=== PATIENT | female | born 1975 | race Caucasian/White ===

== ENCOUNTER 2018-02-12 05:12 | Emergency (ER) | payer OTHER, MEDICAID ==
[~2018-02-12] VITALS: Ht 172.7 cm; Wt 77.3 kg
[~2018-02-12 05:12] MED LIST: ASEN5TAB SL; BUSP5TAB3 PO; TRAZ150T75 PO
[2018-02-12 05:35] VITALS: BP 133/72; PULSE 99; RESP 20; TEMP 98.3; O2SAT 97
--- NOTE | 2018-02-12 07:20 | PD ---
HPI Chief Complaint: Suicidal ideation Time Seen by Provider: 07:03 Travel History International Travel<30 days: No Contact w/Intl Traveler<30days: No History of Present Illness HPI 42yo F with PMH of alcohol abuse and ?bipolar disorder presents to the ED under Box Act for suicidal ideation. As per Box Act, pt attempted to hang herself with a sweater. Pt has some old ecchymoses on her face but no stridor or respiratory distress. Pt is speaking in complete sentences but obviously had drank alcohol. Pt said she only drank 3 drinks. PFSH Past Medical History Bipolar Disorder: Yes Depression: Yes Cardiovascular Problems: Yes (TOLD A CHILD SHE HAS A "HEART PALPATATION") Diabetes: No Psychiatric: Yes : 3 Para: 2 : 1 Social History Alcohol Use: Yes (OCCASIONS) Tobacco Use: Yes (1PPD) Substance Use: No Allergies-Medications (Allergen,Severity, Reaction): Coded Allergies: Sulfa (Sulfonamide Antibiotics) (Unverified Allergy, Severe, 02/12/18) Reported Meds & Prescriptions Reported Meds & Active Scripts Active Reported Trazodone Hcl (Trazodone HCl) 150 Mg Tab 150 Mg PO HS-RT UNKNOWN DOSE Saphris (Asenapine) 5 Mg Sub 15 Mg SL DAILY UNKNOWN DOSE Buspar (Buspirone HCl) 5 Mg Tab 90 Mg PO BID UNKNOWN DOSE Review of Systems Except as stated in HPI: all other systems reviewed are Neg Physical Exam Narrative GENERAL: 42yo F intoxicated. SKIN: Focused skin assessment warm/dry. HEAD: Old ecchymoses on face, no hematoma, no bleeding. EYES: Pupils equal and round. No scleral icterus. No injection or drainage. ENT: No nasal bleeding or discharge. Mucous membranes pink and moist. NECK: No midline ttp cervical spine. CARDIOVASCULAR: Regular rate and rhythm. No murmur appreciated. RESPIRATORY: No accessory muscle use. Clear to auscultation. Breath sounds equal bilaterally. GASTROINTESTINAL: Abdomen soft, non-tender, nondistended. MUSCULOSKELETAL: No obvious deformities. No clubbing. No cyanosis. No edema. NEUROLOGICAL: Awake and alert. No obvious cranial nerve deficits. Motor grossly within normal limits in all extremities. Sensation intact. Normal speech. PSYCHIATRIC: Mildly intoxicated. Manipulative. Data Data Last Documented VS Vital Signs Date Time Temp Pulse Resp B/P (MAP) Pulse Ox O2 Delivery O2 Flow Rate FiO2 02/12/18 05:35 98.3 99 20 133/72 (92) 97 Orders Orders Complete Blood Count With Diff (02/12/18 07:04) Comprehensive Metabolic Panel (02/12/18 07:04) Urinalysis - C+S If Indicated (02/12/18 07:04) Ed Urine Pregnancytest Poc (02/12/18 07:04) Psych Screen (02/12/18 07:04) Diet Regular Basic (02/12/18 Breakfast) Drug Screen, Random Urine (02/12/18 07:04) Alcohol (Ethanol) (02/12/18 07:04) Thyroid Stimulating Hormone (02/12/18 07:03) Salicylates (Aspirin) (02/12/18 07:03) Tylenol (Acetaminophen) (02/12/18 07:03) Ct Brain W/O Iv Contrast(Rout) (02/12/18 ) Ct Facial Bones W/O Iv Cont (02/12/18 ) Ct Cerv Spine W/O Contrast (02/12/18 ) Mri C Spine W/O Contrast (02/12/18 ) Lorazepam (Ativan) (02/12/18 10:30) Ondansetron Odt (Zofran Odt) (02/12/18 10:45) Labs Laboratory Tests Test 02/12/18 05:45 02/12/18 06:55 White Blood Count 10.3 TH/MM3 Red Blood Count 4.15 MIL/MM3 Hemoglobin 14.4 GM/DL Hematocrit 41.5 % Mean Corpuscular Volume 100.0 FL Mean Corpuscular Hemoglobin 34.7 PG Mean Corpuscular Hemoglobin Concent 34.8 % Red Cell Distribution Width 14.0 % Platelet Count 228 TH/MM3 Mean Platelet Volume 8.2 FL Neutrophils (%) (Auto) 53.5 % Lymphocytes (%) (Auto) 39.5 % Monocytes (%) (Auto) 4.7 % Eosinophils (%) (Auto) 1.8 % Basophils (%) (Auto) 0.5 % Neutrophils # (Auto) 5.5 TH/MM3 Lymphocytes # (Auto) 4.1 TH/MM3 Monocytes # (Auto) 0.5 TH/MM3 Eosinophils # (Auto) 0.2 TH/MM3 Basophils # (Auto) 0.0 TH/MM3 CBC Comment DIFF FINAL Differential Comment Blood Urea Nitrogen 4 MG/DL Creatinine 0.87 MG/DL Random Glucose 77 MG/DL Total Protein 7.9 GM/DL Albumin 4.5 GM/DL Calcium Level 8.4 MG/DL Alkaline Phosphatase 74 U/L Aspartate Amino Transf (AST/SGOT) 29 U/L Alanine Aminotransferase (ALT/SGPT) 14 U/L Total Bilirubin 0.4 MG/DL Sodium Level 146 MEQ/L Potassium Level 3.4 MEQ/L Chloride Level 108 MEQ/L Carbon Dioxide Level 18.8 MEQ/L Anion Gap 19 MEQ/L Estimat Glomerular Filtration Rate 71 ML/MIN Thyroid Stimulating Hormone 3rd Gen 0.882 uIU/ML Salicylates Level 4.9 MG/DL Acetaminophen Level LESS THAN 2.0 MCG/ML Ethyl Alcohol Level 259 MG/DL Urine Color LIGHT-YELLOW Urine Turbidity CLEAR Urine pH 6.5 Urine Specific [place] 1.008 Urine Protein NEG mg/dL Urine Glucose (UA) NEG mg/dL Urine Ketones 10 mg/dL Urine Occult Blood NEG Urine Nitrite NEG Urine Bilirubin NEG Urine Urobilinogen LESS THAN 2.0 MG/DL Urine Leukocyte Esterase NEG Urine RBC 1 /hpf Urine WBC LESS THAN 1 /hpf Urine Squamous Epithelial Cells 1 /hpf Urine Mucus FEW /lpf Microscopic Urinalysis Comment CULT NOT INDICATED Urine Opiates Screen NEG Urine Barbiturates Screen NEG Urine Amphetamines Screen NEG Urine Benzodiazepines Screen POS Urine Cocaine Screen NEG Urine Cannabinoids Screen POS [place] Medical Decision Making Medical Screen Exam Complete: Yes Emergency Medical Condition: Yes Differential Diagnosis Alcohol intoxication vs. medical clearance for psych evaluation vs. suicidal ideation Narrative Course 42yo F was brought in as box act for suicidal ideation. Labs reviewed, no leukocytosis. H/H normal. TSH normal. CO2 is low at 18.8. Blood alcohol elevated at 259. Utox positive for benzodiazepine and cannabinoids. CT cspine showed no fracture or dislocation. However, there is slight retrolisthesis seen on C6/7 may be secondary to respiratory artifact versus true retrolisthesis. I discussed with radiologist Dr. Mai and she thinks it is likely from respiratory artifact from movement but given history of trauma, would recommend MRI cervical spine w/o contrast. CT brain negative. CT maxillofacial negative. 1mg PO ativan given prior to MRI because pt is claustrophobic. MRI cspine showed normal exam. Suggested retrolisthesis on CT likely misregistration secondary to pt's respiratory motion. No abnormal edema identified within adjacent ligamentous tissues. Pt is medically clear for psych evaluation. Diagnosis Primary Impression: Suicidal ideation Floresita Espinal DO Feb 12, 2018 07:20
[2018-02-12 07:36] LABS: AUTOMATED NEUTROPHIL # 5.5 TH/MM3 (1.8-7.7); BASOPHIL % 0.5 % (0.0-2.0); EOSINOPHIL # 0.2 TH/MM3 (0-0.4); EOSINOPHIL % 1.8 % (0.0-4.0); HEMATOCRIT 41.5 % (35.0-46.0); HEMOGLOBIN 14.4 GM/DL (11.6-15.3); LYMPH % 39.5 % (9.0-44.0); LYMPHOCYTE # 4.1 TH/MM3 (1.0-4.8); MEAN CORPUSCULAR HEMOGLOBIN 34.7 PG (27.0-34.0); MEAN CORPUSCULAR HGB CONC 34.8 % (32.0-36.0); MEAN PLATELET VOLUME 8.2 FL (7.0-11.0); MONO % 4.7 % (0.0-8.0); MONOCYTE # 0.5 TH/MM3 (0-0.9); NEUT % 53.5 % (16.0-70.0); PLATELET COUNT 228 TH/MM3 (150-450); RED BLOOD COUNT 4.15 MIL/MM3 (4.00-5.30); WHITE BLOOD COUNT 10.3 TH/MM3 (4.0-11.0)
[2018-02-12 07:46] LABS: BILIRUBIN, URINE NEG (NEG); BLOOD, URINE NEG (NEG); GLUCOSE,URINE NEG (NEG); KETONE, URINE 10 mg/dL (NEG); MUCUS URINE FEW /lpf (OCC); NITRITE,URINE NEG (NEG); PH, URINE 6.5 (5.0-8.5); SQUAMOUS EPITHELIAL CELL URINE 1 /hpf (0-5); URINE COLOR LIGHT-YELLOW (YELLW/STRAW); URINE LEUKOCYTE ESTERASE NEG (NEG)
[2018-02-12 07:57] LABS: ALKALINE PHOSPHATASE 74 U/L (45-117); TOTAL BILIRUBIN ADULT 0.4 MG/DL (0.2-1.0); TOTAL PROTEIN 7.9 GM/DL (6.4-8.2)
[2018-02-12 07:59] LABS: ALBUMIN 4.5 GM/DL (3.4-5.0); ALT (GPT) 14 U/L (10-53); AST (GOT) 29 U/L (15-37); BICARBONATE 18.8 MEQ/L (21.0-32.0); BLOOD UREA NITROGEN 4 MG/DL (7-18); CALCIUM 8.4 MG/DL (8.5-10.1); CHLORIDE 108 MEQ/L (98-107); CREATININE 0.87 MG/DL (0.50-1.00); GLOMERULAR FILTRATION RATE 71 ML/MIN (>89); GLUCOSE,RANDOM 77 MG/DL (74-106); SODIUM (NA) 146 MEQ/L (136-145)
[2018-02-12 08:06] LABS: ACETAMINOPHEN LESS THAN 2.0 MCG/ML (10.0-30.0)
--- NOTE | 2018-02-12 09:00 | RADRPT ---
EXAM DATE: 02/12/2018 8:51 AM EDT AGE/SEX: 42 years / Female INDICATIONS: Attempted hanging. CLINICAL DATA: This is the patient's initial encounter. Patient reports that signs and symptoms have been present for 1 day and indicates a pain score of 5/10. MEDICAL/SURGICAL HISTORY: . Psychiatric disorders. None. RADIATION DOSE: 22.01 CTDI (mGy) ; Patient motion COMPARISON: No prior [place] exams available for comparison. TECHNIQUE: Contiguous axial images were obtained using helical multirow detector technique. The vol umetric data was post-processed with multiplanar reconstruction in oblique axial, sagittal, and coron al planes. Using automated exposure control and adjustment of the mA and/or kV according to patient s ize, radiation dose was kept as low as reasonably achievable to obtain optimal diagnostic quality caleb ges. FINDINGS: Vertebrae: Normal vertebral body height. Alignment: There is overall straightening of the cervical spine with minimal retrolisthesis of C6 on C7. There is respiratory artifact identified from the level of C6-T1. Respiratory artifact from C6 through T1 somewhat limits the exam, however, no fractures are visualize d. The adjacent soft tissues are grossly unremarkable. CONCLUSION: 1. No fracture or dislocation visualized, however, there is respiratory artifact seen from C6 throug h T1. The slight retrolisthesis seen on C6/C7 may be secondary to misregistration secondary to respir atory artifact versus true retrolisthesis. Consider further evaluation with MRI when clinically able. Electronically signed by: Tata Mai MD 02/12/2018 8:59 AM EDT
--- NOTE | 2018-02-12 09:33 | RADRPT ---
EXAM DATE: 02/12/2018 8:37 AM EDT AGE/SEX: 42 years / Female INDICATIONS: Attempted hanging. CLINICAL DATA: This is the patient's initial encounter. Patient reports that signs and symptoms have been present for 1 day and indicates a pain score of 4/10. MEDICAL/SURGICAL HISTORY: . Psychiatric disorders. None. RADIATION DOSE: 32.08 CTDI (mGy) COMPARISON: No prior [place] exams available for comparison. TECHNIQUE: CT of the head without contrast. Using automated exposure control and adjustment of the mA and/or kV according to patient size, radiation dose was kept as low as reasonably achievable to ob tain optimal diagnostic quality images. FINDINGS: Motion artifact noted on the exam. Cerebrum: The ventricles are normal for age. No evidence of midline shift, mass lesion, hemorrhage or acute infarction. No extraaxial fluid collections are seen. Posterior Fossa: The cerebellum and brainstem are intact. The 4th ventricle is midline. The cerebe llopontine angle is unremarkable. Extracranial: The visualized portion of the orbits is intact. Mucosal thickening identified througho ut the ethmoid air cells. Skull: The calvaria is intact. No evidence of skull fracture. CONCLUSION: 1. Negative exam. Electronically signed by: Tata Mai MD 02/12/2018 9:32 AM EDT
--- NOTE | 2018-02-12 09:35 | RADRPT ---
EXAM DATE: 02/12/2018 9:06 AM EDT AGE/SEX: 42 years / Female INDICATIONS: Attempted hanging. CLINICAL DATA: This is the patient's initial encounter. Patient reports that signs and symptoms have been present for 1 day and indicates a pain score of 1/10. MEDICAL/SURGICAL HISTORY: . Psychiatric disorders. None. RADIATION DOSE: 63.12 CTDI (mGy) ; Patient motion COMPARISON: No prior [place] exams available for comparison. TECHNIQUE: Contiguous images in the axial and coronal planes were obtained using helical multirow de tector technique. Using automated exposure control and adjustment of the mA and/or kV according to p atient size, radiation dose was kept as low as reasonably achievable to obtain optimal diagnostic jake lity images. FINDINGS: Motion artifact identified throughout the exam. Orbits: The orbital and infraorbital osseous structures are intact. The retroconal structures have a normal configuration. No radiopaque foreign bodies are seen. Nasal Bone: The nasal bone and maxillary spine are intact. Zygomatic Arches: Symmetric without evidence of fracture. Sinuses: Diffuse mucosal thickening identified throughout the ethmoid air cells and frontal sinuses and to a lesser extent the sphenoid sinuses. Rounded area of mucosal thickening identified within the maxillary sinuses consistent with mucous retention cyst. Nasal Cavity: The nasal septum is intact and midline. The lacrimal ducts are intact. Soft Tissues: No radiopaque foreign bodies seen. No soft-tissue swelling is seen. Intracranial: No intracranial air seen. Cribriform Plate: Grossly intact. CONCLUSION: 1. Diffuse sinus disease. Otherwise negative exam. Electronically signed by: Tata Mai MD 02/12/2018 9:34 AM EDT
[2018-02-12] MEDS ORDERED: LORazepam 1 MG TAB PO ONE (10:30)
[2018-02-12] MEDS ORDERED: ONDANSETRON ODT 4 MG TAB PO ONE (10:45)
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
[2018-02-12 12:35] VITALS: BP 131/69; PULSE 78; RESP 14; O2SAT 98
[2018-02-12] MEDS ORDERED: IBUPROFEN 800 MG TAB PO ONE (15:00)
[2018-02-12 15:26] VITALS: BP 157/104; PULSE 70; RESP 16; TEMP 98.6; O2SAT 100
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
--- NOTE | 2018-02-12 17:14 | PD ---
Physical Exam Time Seen by Provider: 17:11 Narrative YESICA Nath has evaluated the patient, lifted the Box act and cleared the patient for discharge. Data Data Last Documented VS Vital Signs Date Time Temp Pulse Resp B/P (MAP) Pulse Ox O2 Delivery O2 Flow Rate FiO2 02/12/18 16:55 02/12/18 15:26 98.6 70 16 100 Room Air Orders Orders Complete Blood Count With Diff (02/12/18 07:04) Comprehensive Metabolic Panel (02/12/18 07:04) Urinalysis - C+S If Indicated (02/12/18 07:04) Ed Urine Pregnancytest Poc (02/12/18 07:04) Psych Screen (02/12/18 07:04) Diet Regular Basic (02/12/18 Breakfast) Drug Screen, Random Urine (02/12/18 07:04) Alcohol (Ethanol) (02/12/18 07:04) Thyroid Stimulating Hormone (02/12/18 07:03) Salicylates (Aspirin) (02/12/18 07:03) Tylenol (Acetaminophen) (02/12/18 07:03) Ct Brain W/O Iv Contrast(Rout) (02/12/18 ) Ct Facial Bones W/O Iv Cont (02/12/18 ) Ct Cerv Spine W/O Contrast (02/12/18 ) Mri C Spine W/O Contrast (02/12/18 ) Lorazepam (Ativan) (02/12/18 10:30) Ondansetron Odt (Zofran Odt) (02/12/18 10:45) Diet Regular Basic (02/12/18 Lunch) Diet Regular Basic (02/12/18 Dinner) Ibuprofen (Motrin) (02/12/18 15:00) Labs Laboratory Tests Test 02/12/18 05:45 02/12/18 06:55 White Blood Count 10.3 TH/MM3 Red Blood Count 4.15 MIL/MM3 Hemoglobin 14.4 GM/DL Hematocrit 41.5 % Mean Corpuscular Volume 100.0 FL Mean Corpuscular Hemoglobin 34.7 PG Mean Corpuscular Hemoglobin Concent 34.8 % Red Cell Distribution Width 14.0 % Platelet Count 228 TH/MM3 Mean Platelet Volume 8.2 FL Neutrophils (%) (Auto) 53.5 % Lymphocytes (%) (Auto) 39.5 % Monocytes (%) (Auto) 4.7 % Eosinophils (%) (Auto) 1.8 % Basophils (%) (Auto) 0.5 % Neutrophils # (Auto) 5.5 TH/MM3 Lymphocytes # (Auto) 4.1 TH/MM3 Monocytes # (Auto) 0.5 TH/MM3 Eosinophils # (Auto) 0.2 TH/MM3 Basophils # (Auto) 0.0 TH/MM3 CBC Comment DIFF FINAL Differential Comment Blood Urea Nitrogen 4 MG/DL Creatinine 0.87 MG/DL Random Glucose 77 MG/DL Total Protein 7.9 GM/DL Albumin 4.5 GM/DL Calcium Level 8.4 MG/DL Alkaline Phosphatase 74 U/L Aspartate Amino Transf (AST/SGOT) 29 U/L Alanine Aminotransferase (ALT/SGPT) 14 U/L Total Bilirubin 0.4 MG/DL Sodium Level 146 MEQ/L Potassium Level 3.4 MEQ/L Chloride Level 108 MEQ/L Carbon Dioxide Level 18.8 MEQ/L Anion Gap 19 MEQ/L Estimat Glomerular Filtration Rate 71 ML/MIN Thyroid Stimulating Hormone 3rd Gen 0.882 uIU/ML Salicylates Level 4.9 MG/DL Acetaminophen Level LESS THAN 2.0 MCG/ML Ethyl Alcohol Level 259 MG/DL Urine Color LIGHT-YELLOW Urine Turbidity CLEAR Urine pH 6.5 Urine Specific [place] 1.008 Urine Protein NEG mg/dL Urine Glucose (UA) NEG mg/dL Urine Ketones 10 mg/dL Urine Occult Blood NEG Urine Nitrite NEG Urine Bilirubin NEG Urine Urobilinogen LESS THAN 2.0 MG/DL Urine Leukocyte Esterase NEG Urine RBC 1 /hpf Urine WBC LESS THAN 1 /hpf Urine Squamous Epithelial Cells 1 /hpf Urine Mucus FEW /lpf Microscopic Urinalysis Comment CULT NOT INDICATED Urine Opiates Screen NEG Urine Barbiturates Screen NEG Urine Amphetamines Screen NEG Urine Benzodiazepines Screen POS Urine Cocaine Screen NEG Urine Cannabinoids Screen POS MDM Supervised Visit with ANN MARIE: No Narrative Course YESICA Nath has evaluated the patient, lifted the Box act and cleared the patient for discharge. Patient contracts safety. Denies suicidal or homicidal ideations. Patient will be provided community resource packet to [facility]/ [facility] for follow-up. Has friends and family for support. Patient was medically cleared by alternate provider prior to psych screening. Patient has been evaluated by psychiatry and and is now cleared for discharge. Diagnosis Primary Impression: Alcohol-induced mood disorder Additional Impressions: Alcohol abuse Depression Referrals: [facility] (Out patient) as needed Medication Management [facility] Primary Care Physician Psychiatrist Minh SCHMITT [facility] Patient Instructions: General Instructions, Depression (ED), Abuse of Alcohol ( ED), At-Risk Alcohol Use (ED) Departure Forms: Tests/Procedures Additional Instruction: Contract safety to your self and others Follow-up with psychiatry Follow-up with primary care provider Follow-up with Rickey Britt Return to the emergency department immediately with worsening of symptoms Med/Other Pt SpecificInfo: No Change to Meds, No Meds Exist/No RX given Disposition: 01 DISCHARGE HOME Condition: Stable Melinda Fontana Feb 12, 2018 17:14
== END 2018-02-12 17:15 | disposition home or self-care (01) ==
LOC: NEPC 05:12 → NEPJ 17:15
DX: F10.24 Alcohol dependence with alcohol-induced mood disorder (principal); F17.200 Nicotine dependence, unspecified, uncomplicated; F31.9 Bipolar disorder, unspecified; Y90.8 Blood alcohol level of 240 mg/100 ml or more; Z79.899 Other long term (current) drug therapy
CPT/HCPCS: 70450; 70486; 72125; 72141; 80053; 80307; 81001; 84443; 84703; 85025

== ENCOUNTER 2018-07-03 16:43 | Inpatient (IN) ==
[2018-07-03] MEDS ORDERED: Haloperidol Inj 5 MG/ML Ampul IM ONE (16:52)
--- NOTE | 2018-07-03 17:57 | ED ---
HPI General Chief Complaint: Altered Mental Status Stated Complaint: altered mental status Time Seen by Provider: 07/03/18 16:52 Source: family () Mode of arrival: EMS Limitations: altered mental status History of Present Illness HPI narrative: Unable to obtain information from the patient secondary to altered mental status and current clinical condition. Patient arrived via EMS. Patients arrived at the bedside and states his son had come to him while he was taking up and told him his , the patient, was acting weird in the bathtub. When he observed her in the bathtub she was laying and rolling from side to side and banging her head uncontrollably. She was awake and continued to say "no" and would not say anything else. He did hear her say "Sarah and "I need to go to the bathroom" at one point. But otherwise she continued to also decide on my own saying "no." The patient is observed during the same behavior here in the ER upon arrival. According to EMS the patient has been observed in this behavior for a few hours. observed he reports that she drinks alcohol daily and she does have alcohol smell on her. He does not know how much alcohol she has consumed today. Reports that she also smokes marijuana. Denies any other illicit drug use that he knows of. On Wednesday she was started on lamotrigine by Dr. Montaño for bipolar disorder. Patient is allergic to sulfa. Symptoms are moderate to severe in severity. No known aggravating or relieving factors. Duration acute. Dr. Montaño is primary care provider. Has been denies any significant past medical history. Does report history of bipolar disorder, alcohol abuse, and cyst of ovary. Related Data Home Medications Medication Instructions Recorded Confirmed lamotrigine 50 mg PO BID 07/03/18 07/03/18 Allergies Allergy/AdvReac Type Severity Reaction Status Date / Time Sulfa (Sulfonamide Allergy Severe Rash Verified 07/03/18 18:27 Antibiotics) Review of Systems ROS Unobtainable ROS Unobtainable: unobtainable due to mental status PMFSH History History Provided By: Family Member and Medical Record Medical History Medical History Bipolar disorder (Acute) Cyst of ovary (Acute) Rib pain on left side (Acute) Alcohol abuse (Acute) Depression (Acute) (Acute) Social History Social History Substance History: Active Abuse Second Hand Smoke Exposure: No Smoking Status: Current every day smoker Tobacco Type: Cigarettes How Often Do You Have a Drink Containing Alcohol: 4 or more times a week Recent Travel in [facility] within the Last 8 Weeks: No Recent Out of Country Travel within the Last 8 Weeks: No Exam Narrative Exam Narrative: Physical exam was completed after the patient was administered medication and she calmed down: GENERAL: Well-nourished, well-developed female patient; rolling from side to side in bed repetitively saying "no" SKIN: Warm and dry. HEAD: Atraumatic. Normocephalic. EYES: Pupils equal and round at 1 mm. No scleral icterus. No injection or drainage. ENT: Mucosa pink and moist. Airway patent. NECK: Trachea midline. CARDIOVASCULAR: Tachycardic rate and rhythm in the 120s to low 130s. No murmur appreciated. RESPIRATORY: No accessory muscle use. Breath sounds clear and equal bilaterally. GASTROINTESTINAL: Flat. Active bowel sounds x4 quadrants. MUSCULOSKELETAL: No obvious deformities. No clubbing. No cyanosis. No edema. NEUROLOGICAL: rolling from side to side in bed repetitively saying "no" PSYCHIATRIC: rolling from side to side in bed repetitively saying "no" Course Initial Documented Vital Signs Temperature 97.8 F 07/03/18 17:00 Pulse Rate 124 H 07/03/18 17:00 Respiratory Rate 32 H 07/03/18 17:00 Blood Pressure 128/74 07/03/18 17:00 Pulse Oximetry 99 07/03/18 17:00 Last Documented Vital Signs Temperature 100 F H 07/04/18 04:00 Pulse Rate 118 H 07/04/18 06:05 Respiratory Rate 29 H 07/04/18 06:05 Blood Pressure 186/103 H 07/04/18 06:05 Pulse Oximetry 98 07/04/18 06:05 Medical Decision Making MDM Narrative Medical decision making narrative: 43-year-old female arrives via EMS with altered mental status. She is rolling from side to side in the bed and saying "no" repetitively. According to EMS patient has been observed in this state for approximately 2-1/2 hours. She smells of alcohol and has history of alcohol abuse. CT head, CT cervical spine, labs, drug screen, alcohol screen ordered. Haldol and Ativan ordered. Patient's at the bedside and said the patient was found in the bathtub with same observed behavior. He reports alcohol abuse and alcohol use today. But does not know how much. Reports she smokes marijuana but denies any other illicit drug use. Patient did start lamotrigine on Wednesday for bipolar disorder. Zyprexa and 1 more milligram of Ativan ordered and administered for continued behavior. 1807: WBC 22.5, Otherwise CBC essentially unremarkable. 182: Creatinine 1.79; elevated from 0.94 on 06/28/2018. Serum alcohol less than 3. Magnesium 1.5. TSH 0.439. 184: Ct head unremarkable. Call placed to [facility] for patient admission. Suspecting alcohol withdrawal. 185: Chest x-ray unremarkable. 185: Dr. Crawley at bedside and report given for patient admission. Medical Screen Exam Complete: Yes Emergency Medical Condition: Yes Differential Diagnosis Differential Diagnosis: Altered mental status, polysubstance abuse, alcohol intoxication, alcohol withdrawal, delirium Lab Data Result diagrams: 07/04/18 04:26 07/04/18 04:26 Lab Results 07/03/18 07/03/18 07/03/18 Range/Units 17:45 17:45 17:45 WBC 22.5 H (4.0-11.0) th/mm3 RBC 4.43 (4.00-5.30) mil/mm3 Hgb 15.7 H (11.6-15.3) gm/dL Hct 45.2 (35.0-46.0) % MCV 102.0 H (80.0-100.0) fL MCH 35.5 H (27.0-34.0) pg MCHC 34.8 (32.0-36.0) % RDW 13.7 (11.6-17.2) % Plt Count 274 (150-450) th/mm3 MPV 7.5 (7.0-11.0) fL Neut % (Auto) 90.9 H (16.0-70.0) % Lymph % (Auto) 3.5 L (9.0-44.0) % [place] % (Auto) 5.4 (0.0-8.0) % Eos % (Auto) 0.0 (0.0-4.0) % Baso % (Auto) 0.2 (0.0-2.0) % Neut # (Auto) 20.4 H (1.8-7.7) th/mm3 Lymph # (Auto) 0.8 L (1.0-4.8) th/mm3 [place] # (Auto) 1.2 H (0.0-0.9) th/mm3 Eos # (Auto) 0.0 (0.0-0.4) th/mm3 Baso # (Auto) 0.0 (0.0-0.2) th/mm3 WBC Differential . Differential Comment Auto diff final PT (9.8-11.6) sec INR Ratio APTT (24.3-30.1) sec Sodium 141 (136-145) meq/L Potassium 4.0 (3.5-5.1) meq/L Chloride 101 (98-107) meq/L Carbon Dioxide 20.8 L (21.0-32.0) meq/L Anion Gap 19 H (5-15) meq/L BUN 6 L (7-18) mg/dL Creatinine 1.79 H (0.50-1.00) mg/dL Estimated GFR 31 L (>89) mL/min Random Glucose 120 H (74-106) mg/dL Calcium 9.5 (8.5-10.1) mg/dL Phosphorus (2.5-4.9) mg/dL Magnesium 1.5 (1.5-2.5) mg/dL Total Bilirubin 0.7 (0.2-1.0) mg/dL AST 71 H (15-37) U/L ALT 25 (10-53) U/L Alkaline Phosphatase 59 (45-117) U/L Total Protein 8.6 H (6.4-8.2) g/dL Albumin 4.7 (3.4-5.0) g/dL TSH 0.439 (0.358-3.740) uIU/mL Urine Color (Yellw/Straw) Urine Clarity (Clear) Urine pH (5.0-8.5) Ur Specific [place] (1.002-1.035) Urine Protein (Neg-Trace) mg/dL Urine Glucose (UA) (Negative) mg/dL Urine Ketones (Negative) mg/dL Urine Occult Blood (Negative) Urine Nitrate (Negative) Urine Bilirubin (Negative) Urine Urobilinogen (Less than 2) mg/dL Ur Leukocyte Esterase (Negative) Urine RBC (0-3) /hpf Urine WBC (0-5) /hpf Ur Squamous Epith Cells (0-5) /hpf Hyaline Casts (0-3) /lpf Urine Mucus (Occasional) /lpf Micro UA Comment Ur Microscopic Review Urine Culture Comments Nasal Screen MRSA (PCR) (Negative) Salicylates 1.7 L (2.8-20.0) mg/dL Urine Opiates Screen (Neg) Acetaminophen Less than 2.0 L (10.0-30.0) mcg/mL Ur Barbiturates Screen (Neg) Ur Amphetamines Screen (Neg) U Benzodiazepines Scrn (Neg) Urine Cocaine Screen (Neg) U Cannabinoids Screen (Neg) Serum Alcohol Less than 3 (0-5) mg/dL 07/03/18 07/03/18 07/03/18 Range/Units 17:45 17:45 23:00 WBC (4.0-11.0) th/mm3 RBC (4.00-5.30) mil/mm3 Hgb (11.6-15.3) gm/dL Hct (35.0-46.0) % MCV (80.0-100.0) fL MCH (27.0-34.0) pg MCHC (32.0-36.0) % RDW (11.6-17.2) % Plt Count (150-450) th/mm3 MPV (7.0-11.0) fL Neut % (Auto) (16.0-70.0) % Lymph % (Auto) (9.0-44.0) % [place] % (Auto) (0.0-8.0) % Eos % (Auto) (0.0-4.0) % Baso % (Auto) (0.0-2.0) % Neut # (Auto) (1.8-7.7) th/mm3 Lymph # (Auto) (1.0-4.8) th/mm3 [place] # (Auto) (0.0-0.9) th/mm3 Eos # (Auto) (0.0-0.4) th/mm3 Baso # (Auto) (0.0-0.2) th/mm3 WBC Differential Differential Comment PT (9.8-11.6) sec INR Ratio APTT (24.3-30.1) sec Sodium (136-145) meq/L Potassium (3.5-5.1) meq/L Chloride (98-107) meq/L Carbon Dioxide (21.0-32.0) meq/L Anion Gap (5-15) meq/L BUN (7-18) mg/dL Creatinine (0.50-1.00) mg/dL Estimated GFR (>89) mL/min Random Glucose (74-106) mg/dL Calcium (8.5-10.1) mg/dL Phosphorus (2.5-4.9) mg/dL Magnesium (1.5-2.5) mg/dL Total Bilirubin (0.2-1.0) mg/dL AST (15-37) U/L ALT (10-53) U/L Alkaline Phosphatase (45-117) U/L Total Protein (6.4-8.2) g/dL Albumin (3.4-5.0) g/dL TSH (0.358-3.740) uIU/mL Urine Color Straw (Yellw/Straw) Urine Clarity Hazy H (Clear) Urine pH 5.0 (5.0-8.5) Ur Specific [place] 1.004 (1.002-1.035) Urine Protein Negative (Neg-Trace) mg/dL Urine Glucose (UA) Negative (Negative) mg/dL Urine Ketones Trace H (Negative) mg/dL Urine Occult Blood Small H (Negative) Urine Nitrate Negative (Negative) Urine Bilirubin Negative (Negative) Urine Urobilinogen Less than 2 (Less than 2) mg/dL Ur Leukocyte Esterase Negative (Negative) Urine RBC Less than 1 (0-3) /hpf Urine WBC Less than 1 (0-5) /hpf Ur Squamous Epith Cells 1 (0-5) /hpf Hyaline Casts 4 (0-3) /lpf Urine Mucus Few H (Occasional) /lpf Micro UA Comment Culture not ind Ur Microscopic Review Not Reportable Urine Culture Comments Culture not ind Nasal Screen MRSA (PCR) Not detected (Negative) Salicylates (2.8-20.0) mg/dL Urine Opiates Screen Neg (Neg) Acetaminophen (10.0-30.0) mcg/mL Ur Barbiturates Screen Neg (Neg) Ur Amphetamines Screen Neg (Neg) U Benzodiazepines Scrn Pos H (Neg) Urine Cocaine Screen Neg (Neg) U Cannabinoids Screen Pos H (Neg) Serum Alcohol (0-5) mg/dL 07/04/18 07/04/18 07/04/18 Range/Units 04:26 04:26 04:26 WBC 16.6 H (4.0-11.0) th/mm3 RBC 4.05 (4.00-5.30) mil/mm3 Hgb 14.2 (11.6-15.3) gm/dL Hct 41.2 (35.0-46.0) % MCV 101.7 H (80.0-100.0) fL MCH 35.0 H (27.0-34.0) pg MCHC 34.4 (32.0-36.0) % RDW 13.8 (11.6-17.2) % Plt Count 215 (150-450) th/mm3 MPV 7.9 (7.0-11.0) fL Neut % (Auto) 79.6 H (16.0-70.0) % Lymph % (Auto) 13.6 (9.0-44.0) % [place] % (Auto) 6.4 (0.0-8.0) % Eos % (Auto) 0.1 (0.0-4.0) % Baso % (Auto) 0.3 (0.0-2.0) % Neut # (Auto) 13.2 H (1.8-7.7) th/mm3 Lymph # (Auto) 2.3 (1.0-4.8) th/mm3 [place] # (Auto) 1.1 H (0.0-0.9) th/mm3 Eos # (Auto) 0.0 (0.0-0.4) th/mm3 Baso # (Auto) 0.1 (0.0-0.2) th/mm3 WBC Differential . Differential Comment Auto diff final PT 10.6 (9.8-11.6) sec INR 1.0 Ratio APTT 26.4 (24.3-30.1) sec Sodium 145 (136-145) meq/L Potassium 3.8 (3.5-5.1) meq/L Chloride 108 H (98-107) meq/L Carbon Dioxide 26.4 (21.0-32.0) meq/L Anion Gap 11 (5-15) meq/L BUN 8 (7-18) mg/dL Creatinine 1.05 H (0.50-1.00) mg/dL Estimated GFR 57 L (>89) mL/min Random Glucose 100 (74-106) mg/dL Calcium 8.9 (8.5-10.1) mg/dL Phosphorus 2.6 (2.5-4.9) mg/dL Magnesium 1.7 (1.5-2.5) mg/dL Total Bilirubin 0.6 (0.2-1.0) mg/dL AST 83 H (15-37) U/L ALT 27 (10-53) U/L Alkaline Phosphatase 52 (45-117) U/L Total Protein 7.3 D (6.4-8.2) g/dL Albumin 3.9 D (3.4-5.0) g/dL TSH (0.358-3.740) uIU/mL Urine Color (Yellw/Straw) Urine Clarity (Clear) Urine pH (5.0-8.5) Ur Specific [place] (1.002-1.035) Urine Protein (Neg-Trace) mg/dL Urine Glucose (UA) (Negative) mg/dL Urine Ketones (Negative) mg/dL Urine Occult Blood (Negative) Urine Nitrate (Negative) Urine Bilirubin (Negative) Urine Urobilinogen (Less than 2) mg/dL Ur Leukocyte Esterase (Negative) Urine RBC (0-3) /hpf Urine WBC (0-5) /hpf Ur Squamous Epith Cells (0-5) /hpf Hyaline Casts (0-3) /lpf Urine Mucus (Occasional) /lpf Micro UA Comment Ur Microscopic Review Urine Culture Comments Nasal Screen MRSA (PCR) (Negative) Salicylates (2.8-20.0) mg/dL Urine Opiates Screen (Neg) Acetaminophen (10.0-30.0) mcg/mL Ur Barbiturates Screen (Neg) Ur Amphetamines Screen (Neg) U Benzodiazepines Scrn (Neg) Urine Cocaine Screen (Neg) U Cannabinoids Screen (Neg) Serum Alcohol (0-5) mg/dL Imaging Data Radiologist's impression: Cervical Spine CT 07/03/18 16:55 CONCLUSION: 1. No acute findings on cervical spine CT. Head CT 07/03/18 16:55 CONCLUSION: 1. No acute intracranial abnormality. 2. Mild bilateral maxillary sinus mucosal disease. . Chest X-Ray 07/03/18 18:22 CONCLUSION: 1. No acute cardiopulmonary disease. Discharge Plan Discharge Disposition Patient Disposition: 30 Still Patient Discharge Details Diagnosis: Altered mental status, Acute kidney injury Physicians Team ED Provider: Aime Anderson ED Midlevel Provider: Melinda Fontana Primary Care Provider: UNKNOWN, Attending Provider: Renetta Jorge Other Providers: Rajinder Crawley Status ED Status: Left Department Discharge Information Discharge Date/Time: 07/03/18 20:20
[2018-07-03 17:59] LABS: Baso % (Auto) 0.2 % (0.0-2.0); Hematocrit 45.2 % (35.0-46.0); Hemoglobin 15.7 gm/dL (11.6-15.3); Lymph # (Auto) 0.8 th/mm3 (1.0-4.8); Lymph % (Auto) 3.5 % (9.0-44.0); Mean Corpuscular HGB Conc 34.8 % (32.0-36.0); Mean Corpuscular Hemoglobin 35.5 pg (27.0-34.0); Mean Platelet Volume 7.5 fL (7.0-11.0); Mono # (Auto) 1.2 th/mm3 (0.0-0.9); Mono % (Auto) 5.4 % (0.0-8.0); Neut # (Auto) 20.4 th/mm3 (1.8-7.7); Neut % (Auto) 90.9 % (16.0-70.0); Platelet Count 274 th/mm3 (150-450); Red Blood Count 4.43 mil/mm3 (4.00-5.30); Red Cell Distribution Width 13.7 % (11.6-17.2); White Blood Count 22.5 th/mm3 (4.0-11.0)
[2018-07-03] MEDS ORDERED: Sod Chloride 0.9% Inj 1,000 ML IV.SIG SCH (18:15)
[2018-07-03 18:18] LABS: Alanine Aminotransferase 25 U/L (10-53); Albumin 4.7 g/dL (3.4-5.0); Anion Gap 19 meq/L (5-15); Aspartate Aminotransferase 71 U/L (15-37); Blood Urea Nitrogen 6 mg/dL (7-18); Calcium 9.5 mg/dL (8.5-10.1); Carbon Dioxide 20.8 meq/L (21.0-32.0); Chloride 101 meq/L (98-107); Glomerular Filtration Rate 31 mL/min (>89); Glucose,Random 120 mg/dL (74-106); Magnesium 1.5 mg/dL (1.5-2.5); Sodium 141 meq/L (136-145)
[2018-07-03 18:27] LABS: Alkaline Phosphatase 59 U/L (45-117); Thyroid Stimulating Hormone 0.439 uIU/mL (0.358-3.740); Total Protein 8.6 g/dL (6.4-8.2)
--- NOTE | 2018-07-03 18:33 | CT ---
EXAM DATE: 07/03/2018 5:33 PM EDT AGE/SEX: 43 years / Female INDICATIONS: Found unresponsive in bathtub. CLINICAL DATA: This is the patient's initial encounter. Patient reports that signs and symptoms have been present for 1 day and indicates a pain score of Nonresponsive. MEDICAL/SURGICAL HISTORY: . Alcohol abuse None. RADIATION DOSE: 43.70 CTDI (mGy) COMPARISON: [facility] [place], CT BRAIN W/O CONTRAST, 02/12/2018. . TECHNIQUE: CT of the head without contrast. Using automated exposure control and adjustment of the mA and/or kV according to patient size, radiation dose was kept as low as reasonably achievable to ob tain optimal diagnostic quality images. DICOM format image data is available electronically for revi ew and comparison. FINDINGS: Cerebrum: The ventricles are normal for age. No evidence of midline shift, mass lesion, hemorrhage o r acute infarction. No extraaxial fluid collections are seen. Posterior Fossa: The cerebellum and brainstem are intact. The 4th ventricle is midline. The cerebe llopontine angle is unremarkable. Extracranial: The visualized portion of the orbits is intact. Mild mucopyocele thickening in the max illary sinuses. Skull: The calvaria is intact. No evidence of skull fracture. CONCLUSION: 1. No acute intracranial abnormality. 2. Mild bilateral maxillary sinus mucosal disease. . Electronically signed by: Antonio Weaver MD 07/03/2018 6:32 PM EDT
--- NOTE | 2018-07-03 18:46 | XR ---
EXAM DATE: 07/03/2018 6:22 PM EDT AGE/SEX: 43 years / Female INDICATIONS: Evaluate chest for trauma CLINICAL DATA: This is the patient's initial encounter. Patient reports that signs and symptoms have been present for 1 day and indicates a pain score of Nonresponsive. MEDICAL/SURGICAL HISTORY: Non-responsive. Non-responsive. [place] [facility] [place]. . FINDINGS: A single AP view of the chest demonstrates the lungs to be symmetrically aerated without evidence of mass, infiltrate or effusion. The cardiomediastinal contours are unremarkable. Osseous structures a re intact. CONCLUSION: 1. No acute cardiopulmonary disease. Electronically signed by: Antonio Weaver MD 07/03/2018 6:45 PM EDT
--- NOTE | 2018-07-03 19:04 | CT ---
EXAM DATE: 07/03/2018 5:33 PM EDT AGE/SEX: 43 years / Female INDICATIONS: Found unresponsive in bathtub. CLINICAL DATA: This is the patient's initial encounter. Patient reports that signs and symptoms have been present for 1 day and indicates a pain score of Nonresponsive. MEDICAL/SURGICAL HISTORY: . Alcohol abuse None. RADIATION DOSE: 42.99 CTDI (mGy) COMPARISON: No prior exams available for comparison. TECHNIQUE: Contiguous axial images were obtained using helical multirow detector technique. The vol umetric data was post-processed with multiplanar reconstruction in oblique axial, sagittal, and coron al planes. Using automated exposure control and adjustment of the mA and/or kV according to patient s ize, radiation dose was kept as low as reasonably achievable to obtain optimal diagnostic quality caleb ges. DICOM format image data is available electronically for review and comparison. FINDINGS: No acute fracture or spondylolisthesis. No prevertebral soft tissue swelling. No bony canal or forami nal stenosis. CONCLUSION: 1. No acute findings on cervical spine CT. Electronically signed by: Brayden Dangelo MD 07/03/2018 7:03 PM EDT
[2018-07-03 19:09] LABS: Bilirubin,Urine Negative (Negative); Clarity,Urine Hazy (Clear); Color,Urine Straw (Yellw/Straw); Glucose,Urine (UA) Negative (Negative); Hyaline Casts,Urine 4 /lpf (0-3); Leukocyte Esterase,Urine Negative (Negative); Mucus,Urine Few /lpf (Occasional); Nitrite,Urine Negative (Negative); Specific Gravity,Urine 1.004 (1.002-1.035); Squamous Epithelial Cell,Urine 1 /hpf (0-5)
[2018-07-03] MEDS ORDERED: Morphine Sulfate Inj 2 MG/ML Vial IV.PUSH PRN (19:10)
[2018-07-03] MEDS ORDERED: Acetaminophen 325 MG Tablet PO PRN (19:10)
[2018-07-03] MEDS ORDERED: Bisacodyl 10 MG Supp RECTAL PRN (19:10)
[2018-07-03 19:13] LABS: Amphetamine Screen,Urine Neg (Neg); Barbiturate Screen,Urine Neg (Neg); Cannabinoid Screen,Urine Pos (Neg); Cocaine Screen,Urine Neg (Neg)
[2018-07-03] MEDS ORDERED: LORazepam 1 MG Tablet PO PRN (19:16)
[2018-07-03] MEDS ORDERED: Haloperidol Inj 5 MG/ML Ampul IV.PUSH PRN (19:16)
[2018-07-03 19:18] LABS: Opiate Screen,Urine Neg (Neg)
--- NOTE | 2018-07-03 19:22 | P.HPCC ---
History of Present Illness Primary Care Physician: UNKNOWN History of Present Illness: 43-year-old female patient with history of bipolar disorder, alcohol abuse, and cyst of ovary presents for an evaluation of altered mental status after she was acting weird in the bathtub. She was laying and rolling from side to side and banging her head uncontrollably. She was awake and continued to say "no" and would not say anything else. The patient was observed presenting the same behavior here in the ER upon arrival. According to EMS the patient has been observed in this behavior for a few hours. Per patient her reports she drinks alcohol daily however her alcohol level today is negative. Has been does not know how much alcohol she has consumed today if any. He also reports that she smokes marijuana. Denies any other illicit drug use that he knows of. On Wednesday she was started on Lamotrigine for bipolar disorder. Patient is allergic to sulfa. Symptoms are moderate to severe in severity. No known aggravating or relieving factors. Review of Systems unobtainable due to mental condition PMFSH - History History Provided By: Family Member, Medical Record - Medical History Medical History: Medical History (Last Reviewed 07/03/18 @ 18:43 by Amy Melchor RN) Bipolar disorder (Acute) Cyst of ovary (Acute) Rib pain on left side (Acute) Alcohol abuse (Acute) Depression (Acute) - Surgical History Surgical History: Surgical History (Last Reviewed 07/03/18 @ 18:43 by Amy Melchor RN) No history of previous surgery (Acute) - Tobacco History Second Hand Smoke Exposure: No Tobacco Use In Past 30 Days: No Smoking Status: Current every day smoker Tobacco Type: Cigarettes - Alcohol History How Often Do You Have a Drink Containing Alcohol: 4 or more times a week - Substance Use History Substance History: Active Abuse - Substance Use Type Marijuana Status: Active Route Used: Inhalation Reason for Use: Calm Down - Travel History Recent Travel in the [place] Within the Last 8 Weeks: No Recent Travel Out of the Country Within the Last 8 Weeks: No - Immunization History Tetanus Immunization: <5 Years Medications and Allergies Active Medications: Active Medications Acetaminophen (Tylenol) 650 mg PO Q6H PRN PRN Reason: PAIN 1-10 AND/OR FEVER >101F Al Hydroxide/Mg Hydroxide (Milk Of Magnesia Liq) 30 ml PO Q12H PRN PRN Reason: Mild Constipation Albuterol (Duoneb Neb (Prn)) 1 ampul NEB Q2HR NEB PRN PRN Reason: WHEEZING Bisacodyl (Dulcolax Supp) 10 mg RECTAL DAILY PRN PRN Reason: SEVERE CONSITIPATION Chlorhexidine Gluconate (Chlorhexidine 2% Cloth) 3 pack TOPICAL DAILY@0400 STARR Stop: 07/09/18 03:59 Chlorhexidine Gluconate (Chlorhexidine 2% Cloth) 3 pack TOPICAL DAILY@0400 PRN PRN Reason: Extra cloth needed Stop: 07/09/18 03:59 Flumazenil (Romazecon Inj) 0.2 mg IV.PUSH Q1M PRN PRN Reason: OVERSEDATION Haloperidol Lactate (Haldol Inj) 1 mg IV.PUSH Q15M PRN PRN Reason: for severe agitation Heparin Sodium (Porcine) (Heparin Inj) 5,000 units SQ Q8H STARR Sodium Chloride (Ns Inj) 1,000 mls @ 0 mls/hr IV.SIG BOLUS STARR Last Infusion: 07/03/18 19:13 Dose: Infused Sodium Chloride (Ns Inj) 1,000 mls @ 84 mls/hr IV.CONT .[id number] STARR Lactulose (Lactulose Liq) 30 ml PO DAILY PRN PRN Reason: SEVERE CONSITIPATION Lamotrigine (Lamictal) 50 mg PO BID STARR Lorazepam (Ativan Inj) 1 mg IV.PUSH Q4H PRN PRN Reason: for CIWA 8-10 Lorazepam (Ativan) 1 mg PO Q4H PRN PRN Reason: for CIWA 8-10 Lorazepam (Ativan) 2 mg PO Q2H PRN PRN Reason: for CIWA 11-14 Lorazepam (Ativan Inj) 2 mg IV.PUSH Q2H PRN PRN Reason: for CIWA 11-14 Lorazepam (Ativan Inj) 2 mg IV.PUSH Q1H PRN PRN Reason: for CIWA 15-20 Lorazepam (Ativan Inj) 2 mg IV.PUSH Q15M PRN PRN Reason: for CIWA > 20 Morphine Sulfate (Morphine Inj) 2 mg IV.PUSH Q2H PRN PRN Reason: PAIN SCALE 6 TO 10 Ondansetron HCl (Zofran Inj) 4 mg IV.PUSH Q6H PRN PRN Reason: NAUSEA OR VOMITING Senna/Docusate Sodium (Ava-Colace) 1 tab PO BID STARR Sennosides (Senokot) 17.2 mg PO Q12H PRN PRN Reason: Moderate Constipation Sodium Chloride (Ns Flush) 2 ml IV.FLUSH BID STARR Sodium Chloride (Ns Flush) 2 ml IV.FLUSH PRN PRN PRN Reason: FLUSH AFTER USING IV ACCESS Allergies Allergy/AdvReac Type Severity Reaction Status Date / Time Sulfa (Sulfonamide Allergy Severe Rash Verified 07/03/18 18:27 Antibiotics) Home Medications Medication Instructions Recorded Confirmed Type lamotrigine 50 mg PO BID 07/03/18 07/03/18 History Results - Labs CBC & Chem 7: 07/03/18 17:45 07/03/18 17:45 Labs: Short CBC 07/03/18 Range/Units 17:45 WBC 22.5 H (4.0-11.0) th/mm3 Hgb 15.7 H (11.6-15.3) gm/dL Hct 45.2 (35.0-46.0) % Plt Count 274 (150-450) th/mm3 BMP 07/03/18 17:45 Sodium 141 Potassium 4.0 Chloride 101 Carbon Dioxide 20.8 L BUN 6 L Creatinine 1.79 H Calcium 9.5 Liver Function 07/03/18 Range/Units 17:45 Total Bilirubin 0.7 (0.2-1.0) mg/dL AST 71 H (15-37) U/L ALT 25 (10-53) U/L Alkaline Phosphatase 59 (45-117) U/L Albumin 4.7 (3.4-5.0) g/dL Urine 07/03/18 Range/Units 17:45 Urine Color Straw (Yellw/Straw) Urine Clarity Hazy H (Clear) Urine pH 5.0 (5.0-8.5) Ur Specific [place] 1.004 (1.002-1.035) Urine Protein Negative (Neg-Trace) mg/dL Urine Glucose (UA) Negative (Negative) mg/dL - Imaging Impressions Cervical Spine CT 07/03/18 16:55 CONCLUSION: 1. No acute findings on cervical spine CT. Head CT 07/03/18 16:55 CONCLUSION: 1. No acute intracranial abnormality. 2. Mild bilateral maxillary sinus mucosal disease. . Chest X-Ray 07/03/18 18:22 CONCLUSION: 1. No acute cardiopulmonary disease. Exam Vital signs: Vital Signs 07/03/18 17:00 07/03/18 18:00 Temperature 97.8 F Pulse Rate 124 H 90 Respiratory Rate 32 H 18 Blood Pressure 128/74 118/67 Pulse Oximetry 99 Intake & Output 07/03/18 07/03/18 07/04/18 06:59 18:59 06:59 Intake Total 1000 / 1000 Balance 1000 / 1000 Weight 68.946 kg Intake: IV 1000 / 1000 NS Inj 1,000 ML @ Wide Open IV. 1000 / 1000 SIG BOLUS STARR Rx#:[id number] - Constitutional moderate distress, agitated - Routine HEENT Exam Head: Present: normocephalic, atraumatic Eye: Present: PERRL, normal accommodation ENT: Present: mucous membranes moist - Routine Neck Exam Present: supple, full ROM. Absent: JVD, carotid bruit - Routine Respiratory Exam Absent: accessory muscle use, rhonchi, stridor, wheezes - Routine Cardiovascular Exam Present: RRR, S1, S2 - Routine Abdominal Exam Present: soft, normoactive bowel sounds. Absent: tenderness, distended - Routine Extremities Exam Absent: cyanosis, clubbing, edema - Routine Skin Exam Present: intact. Absent: cyanosis, erythema - Routine Neurological Exam Present: altered mental status, moving all extremities Septic Shock Reassessment Septic shock perfusion: reassessment completed Caprini VTE Risk Assessment Caprini VTE Risk Assessment: Moderate/High Risk (score >= 2) Caprini Risk Assessment Model: Point Value = 1 Point Value = 2 Point Value = 3 Point Value = 5 Age 41-60 Minor surgery BMI > 25 kg/m2 Swollen legs Varicose veins or History of unexplained or recurrent spontaneous Oral contraceptives or hormone replacement Sepsis (< 1 month) Serious lung disease, including pneumonia (< 1 month) Abnormal pulmonary function Acute myocardial infarction Congestive heart failure (< 1 month) History of inflammatory bowel disease Medical patient at bed rest Age 61-74 Arthroscopic surgery Major open surgery (> 45 min) Laparoscopic surgery (> 45 min) Malignancy Confined to bed (> 72 hours) Immobilizing plaster cast Central venous access Age >= 75 History of VTE Family history of VTE Factor V Leiden Prothrombin [id number] Lupus anticoagulant Anticardiolipin antibodies Elevated serum homocysteine Heparin-induced thrombocytopenia Other congenital or acquired thrombophilia Stroke (< 1 month) Elective arthroplasty Hip, pelvis, or leg fracture Acute spinal cord injury (< 1 month) Prophylaxis Regimen: Total Risk Factor Score Risk Level Prophylaxis Regimen 0-1 Low Early ambulation 2 Moderate Order ONE of the following: *Sequential Compression Device (SCD) *Heparin 5000 units SQ BID 3-4 Higher Order ONE of the following medications: *Heparin 5000 units SQ TID *Enoxaparin/Lovenox 40 mg SQ daily (WT < 150 kg, CrCl > 30 mL/min) *Enoxaparin/Lovenox 30 mg SQ daily (WT < 150 kg, CrCl > 10-29 mL/min) *Enoxaparin/Lovenox 30 mg SQ BID (WT < 150 kg, CrCl > 30 mL/min) AND/OR *Sequential Compression Device (SCD) 5 or more Highest Order ONE of the following medications: *Heparin 5000 units SQ TID (Preferred with Epidurals) *Enoxaparin/Lovenox 40 mg SQ daily (WT < 150 kg, CrCl > 30 mL/min) *Enoxaparin/Lovenox 30 mg SQ daily (WT < 150 kg, CrCl > 10-29 mL/min) *Enoxaparin/Lovenox 30 mg SQ BID (WT < 150 kg, CrCl > 30 mL/min) AND *Sequential Compression Device (SCD) Assessment and Plan - Assessment and Plan Plan: Altered mental status -CT head negative -Likely alcohol withdrawal -[facility] protocol -Monitor for DTs Bipolar disorder -Continue Lamictal Macrocytosis -B12 folate and multivitamin infusion Leukocytosis -Likely stress related -Monitor for infection -No antibiotics at this time, patient is afebrile -Blood cultures Acute kidney injury -Dehydration -IV fluid resuscitation -Strict I's and O's -Monitor creatinine and electrolyte levels DVT GI prophylaxis -Teds SCDs -Subcu Lovenox -Regular diet 35 minutes of critical care
[2018-07-03] MEDS: Sod Chloride 0.9% Inj 1,000 ML IV.CONT SCH (20:20)
[2018-07-03] MEDS: Heparin - SQ 10,000 UNITS/ML Vial SQ SCH (20:20)
[2018-07-03] MEDS ORDERED: Labetalol HCl Inj 100 MG/20 ML Vial IV.PUSH PRN (21:06)
[2018-07-03] MEDS: Senna/Docusate Sodium 8.6/50 MG Tablet PO SCH (22:24)
[2018-07-03] MEDS: lamoTRIgine 25 MG TABLET PO SCH (23:04)
[2018-07-04] MEDS: Heparin - SQ 10,000 UNITS/ML Vial SQ SCH ×3 (03:11→20:27)
[2018-07-04] MEDS: Chlorhexidine Gluconate 2% 1 Pack (2 Cloths) TOPICAL SCH (03:11)
[2018-07-04] MEDS: Multivitamin Inj 10 ML, Thiamine Inj 100 MG, Folic Acid Inj 1 MG in Sodium Chlor 0.9% I... IV.SIG SCH (03:29)
[2018-07-04] MEDS ORDERED: Chlorhexidine Gluconate 2% 1 Pack (2 Cloths) TOPICAL PRN (04:00)
[2018-07-04 04:54] LABS: Baso # (Auto) 0.1 th/mm3 (0.0-0.2); Baso % (Auto) 0.3 % (0.0-2.0); Eos % (Auto) 0.1 % (0.0-4.0); Hematocrit 41.2 % (35.0-46.0); Hemoglobin 14.2 gm/dL (11.6-15.3); Lymph # (Auto) 2.3 th/mm3 (1.0-4.8); Lymph % (Auto) 13.6 % (9.0-44.0); Mean Corpuscular HGB Conc 34.4 % (32.0-36.0); Mean Corpuscular Volume 101.7 fL (80.0-100.0); Mean Platelet Volume 7.9 fL (7.0-11.0); Mono # (Auto) 1.1 th/mm3 (0.0-0.9); Mono % (Auto) 6.4 % (0.0-8.0); Neut # (Auto) 13.2 th/mm3 (1.8-7.7); Neut % (Auto) 79.6 % (16.0-70.0); Platelet Count 215 th/mm3 (150-450); Red Blood Count 4.05 mil/mm3 (4.00-5.30); Red Cell Distribution Width 13.8 % (11.6-17.2); White Blood Count 16.6 th/mm3 (4.0-11.0)
[2018-07-04 05:03] LABS: Activated Partial Thrombo Time 26.4 sec (24.3-30.1); Prothrombin Time 10.6 sec (9.8-11.6)
[2018-07-04 05:23] LABS: Alanine Aminotransferase 27 U/L (10-53); Albumin 3.9 g/dL (3.4-5.0); Alkaline Phosphatase 52 U/L (45-117); Anion Gap 11 meq/L (5-15); Aspartate Aminotransferase 83 U/L (15-37); Blood Urea Nitrogen 8 mg/dL (7-18); Calcium 8.9 mg/dL (8.5-10.1); Carbon Dioxide 26.4 meq/L (21.0-32.0); Chloride 108 meq/L (98-107); Glomerular Filtration Rate 57 mL/min (>89); Glucose,Random 100 mg/dL (74-106); Magnesium 1.7 mg/dL (1.5-2.5); Phosphorus 2.6 mg/dL (2.5-4.9); Potassium 3.8 meq/L (3.5-5.1); Sodium 145 meq/L (136-145); Total Protein 7.3 g/dL (6.4-8.2)
[2018-07-04] MEDS ORDERED: Dexmedetomidine Inj 200 MCG/2 ML Vial IV.PUSH ONE (05:55)
[2018-07-04] MEDS: Dexmedetomidine Inj 200 MCG in Sodium Chlor 0.9% Inj 48 ML IV.CONT PRN ×2 (06:23→08:00)
--- NOTE | 2018-07-04 07:45 | P.HPIM ---
History of Present Illness Service: [facility] Primary Care Physician: UNKNOWN Chief Complaint: AMS History of Present Illness: This is a 43-year-old CF with PMHx of Bipolar disorder and Alcohol abuse admitted for evaluation of altered mental status after she was acting weird in the bathtub. According to the ER reports patient was rolling from side to side and banging her head uncontrollably. She was awake and continued to say "no" and would not say anything else. This was witnessed by her , who also reported that she was flailing her arms and legs, with a possible seizure. Per patient's patient drinks alcohol daily, however her alcohol level was negative on admission. He was unsure if she had consumed any alcohol on the day of admission. +marijuana use. Denies any other illicit drug use per . Of note, on Wednesday patient was started on Lamotrigine for bipolar disorder, it is unknown who Rx this. History is taken today from RN at bedside, previous notes, and ER records. is not present currently during my evaluation. On my evaluation today, patient is completely sedated after being started on a Precedex drip due to increased aggression this morning. - Diagnosis (1) Alcohol abuse with intoxication (2) Marijuana abuse (3) Borderline personality disorder (4) Altered mental status (5) Acute kidney injury (6) Bipolar disorder Inpatient Certification: I certify that the inpatient services were ordered in accordance with Medicare regulations governing the order. This includes certification that hospital inpatient services are reasonable and necessary and in the case of services not specified as inpatient-only under 42 CFR 419.22(n), that they are appropriately provided as inpatient services in accordance to with the 2-midnight benchmark under 43 CFR 412.3(e) Estimated Total Length of Stay (Days): 5 Plans for Post Hospital Care: Not yet determined Review of Systems unobtainable due to mental status PMFSH - History History Provided By: Family Member, Medical Record - Medical / Surgical Hx Neg / Unobtainable Medical Problems Denied: Unable to Obtain Surgical History: Unable to Obtain - Medical History Medical History: Medical History (Last Reviewed 07/04/18 @ 09:46 by Renetta Jorge MD) Bipolar disorder (Acute) Cyst of ovary (Acute) Rib pain on left side (Acute) Alcohol abuse (Acute) Depression (Acute) - Surgical History Surgical History: Surgical History (Last Reviewed 07/04/18 @ 09:46 by Renetta Jorge MD) No history of previous surgery (Acute) - Family History Family History: Family History (Last Updated 07/04/18 @ 09:46 by Renetta Jorge MD) Other Family history unknown - Tobacco History Second Hand Smoke Exposure: Yes Tobacco Use In Past 30 Days: Yes Smoking Status: Current every day smoker Tobacco Type: Cigarettes - Alcohol History How Often Do You Have a Drink Containing Alcohol: 4 or more times a week ( ) - Substance Use History Substance History: Active Abuse - Substance Use Type Marijuana Status: Active Route Used: Inhalation Reason for Use: Calm Down - Travel History Recent Travel in the [place] Within the Last 8 Weeks: No Recent Travel Out of the Country Within the Last 8 Weeks: No - Immunization History Tetanus Immunization: <5 Years Medications and Allergies Active Medications: Active Medications Acetaminophen (Tylenol) 650 mg PO Q6H PRN PRN Reason: PAIN 1-10 AND/OR FEVER >101F Al Hydroxide/Mg Hydroxide (Milk Of [place] Liq) 30 ml PO Q12H PRN PRN Reason: Mild Constipation Albuterol (Duoneb Neb (Prn)) 1 ampul NEB Q2HR NEB PRN PRN Reason: WHEEZING Bisacodyl (Dulcolax Supp) 10 mg RECTAL DAILY PRN PRN Reason: SEVERE CONSITIPATION Chlorhexidine Gluconate (Chlorhexidine 2% Cloth) 3 pack TOPICAL DAILY@0400 STARR Stop: 07/09/18 03:59 Last Admin: 07/04/18 03:11 Dose: 3 pack Chlorhexidine Gluconate (Chlorhexidine 2% Cloth) 3 pack TOPICAL DAILY@0400 PRN PRN Reason: Extra cloth needed Stop: 07/09/18 03:59 Clonidine HCl (Catapress-Tts 0.1 Mg Patch.7d) 1 patch T-DERMAL Q7D [facility] Enalaprilat (Vasotec Inj) 2.5 mg IV.PUSH Q6H PRN PRN Reason: SBP>160, DBP>90 Flumazenil (Romazecon Inj) 0.2 mg IV.PUSH Q1M PRN PRN Reason: OVERSEDATION Haloperidol Lactate (Haldol Inj) 1 mg IV.PUSH Q15M PRN PRN Reason: for severe agitation Last Admin: 07/04/18 00:09 Dose: 1 mg Heparin Sodium (Porcine) (Heparin Inj) 5,000 units SQ Q8H [facility] Last Admin: 07/04/18 03:11 Dose: 5,000 units Sodium Chloride (Ns Inj) 1,000 mls @ 84 mls/hr IV.CONT .[id number] [facility] Last Admin: 07/03/18 20:20 Dose: 84 mls/hr Multivitamins 10 ml/ Thiamine HCl 100 mg/ Folic Acid 1 mg/Sodium Chloride 511.2 mls @ 127.8 mls/hr IV.SIG Q24H [facility] Last Admin: 07/04/18 03:29 Dose: 127.8 mls/hr Dexmedetomidine HCl 200 mcg/ (Sodium Chloride) 50 mls @ 3.38 mls/hr IV.CONT TITRATE PRN; Protocol PRN Reason: Per Protocol Last Titration: 07/04/18 06:38 Dose: 0.3 mcg/kg/hr, 5.07 mls/hr Labetalol HCl (Trandate Inj) 10 mg IV.PUSH Q4H PRN PRN Reason: SBP>160, DBP>90 Lactulose (Lactulose Liq) 30 ml PO DAILY PRN PRN Reason: SEVERE CONSITIPATION Lamotrigine (Lamictal) 50 mg PO BID [facility] Last Admin: 07/03/18 23:04 Dose: Not Given Lorazepam (Ativan Inj) 1 mg IV.PUSH Q4H PRN PRN Reason: for CIWA 8-10 Lorazepam (Ativan) 1 mg PO Q4H PRN PRN Reason: for CIWA 8-10 Lorazepam (Ativan) 2 mg PO Q2H PRN PRN Reason: for CIWA 11-14 Lorazepam (Ativan Inj) 2 mg IV.PUSH Q2H PRN PRN Reason: for CIWA 11-14 Lorazepam (Ativan Inj) 2 mg IV.PUSH Q1H PRN PRN Reason: for CIWA 15-20 Last Admin: 07/04/18 05:31 Dose: 2 mg Lorazepam (Ativan Inj) 2 mg IV.PUSH Q15M PRN PRN Reason: for CIWA > 20 Morphine Sulfate (Morphine Inj) 2 mg IV.PUSH Q2H PRN PRN Reason: PAIN SCALE 6 TO 10 Ondansetron HCl (Zofran Inj) 4 mg IV.PUSH Q6H PRN PRN Reason: NAUSEA OR VOMITING Patch Removal (Remove Old Patch) 1 each T-DERMAL Q7D [facility] Senna/Docusate Sodium (Ava-Colace) 1 tab PO BID [facility] Last Admin: 07/03/18 22:24 Dose: Not Given Sennosides (Senokot) 17.2 mg PO Q12H PRN PRN Reason: Moderate Constipation Sodium Chloride (Ns Flush) 2 ml IV.FLUSH BID [facility] Last Admin: 07/03/18 22:24 Dose: 2 ml Sodium Chloride (Ns Flush) 2 ml IV.FLUSH UNSCH PRN PRN Reason: FLUSH AFTER USING IV ACCESS Allergies Allergy/AdvReac Type Severity Reaction Status Date / Time Sulfa (Sulfonamide Allergy Severe Rash Verified 07/03/18 18:27 Antibiotics) Home Medications Medication Instructions Recorded Confirmed Type lamotrigine 50 mg PO BID 07/03/18 07/03/18 History Exam Vital signs: Vital Signs 07/03/18 17:00 07/03/18 18:00 07/03/18 19:00 Temperature 97.8 F Pulse Rate 124 H 90 86 Respiratory Rate 32 H 18 12 Blood Pressure 128/74 118/67 109/64 Pulse Oximetry 99 99 07/03/18 21:00 07/04/18 00:56 07/04/18 01:00 Temperature 98.8 F 98.5 F Pulse Rate 104 H 97 H 89 Respiratory Rate 24 14 18 Blood Pressure 154/88 H 130/75 Pulse Oximetry 99 99 97 07/04/18 02:00 07/04/18 03:00 07/04/18 04:00 Temperature 100 F H Pulse Rate 81 70 135 H Respiratory Rate 12 12 46 H Blood Pressure 119/77 136/86 Pulse Oximetry 99 100 99 07/04/18 04:01 07/04/18 04:25 07/04/18 04:50 Temperature Pulse Rate 138 H 110 H 103 H Respiratory Rate 37 H 37 H 36 H Blood Pressure 186/105 H 196/138 H 167/89 H Pulse Oximetry 99 98 99 07/04/18 05:00 07/04/18 05:06 07/04/18 06:00 Temperature Pulse Rate 109 H 110 H 118 H Respiratory Rate 43 H 34 H 33 H Blood Pressure 140/107 H Pulse Oximetry 100 100 97 07/04/18 06:01 07/04/18 06:05 Temperature Pulse Rate 117 H 118 H Respiratory Rate 27 H 29 H Blood Pressure 158/113 H 186/103 H Pulse Oximetry 97 98 Intake & Output 07/03/18 07/04/18 07/04/18 18:59 06:59 18:59 Intake Total 1240 / 1240 Balance 1240 / 1240 Weight 68.946 kg 68 kg Intake: IV 1000 / 1000 NS Inj 1,000 ML @ Wide Open IV. 1000 / 1000 SIG BOLUS STARR Rx#:[id number] Oral 240 / 240 Other: # Incontinent Voids 1 Weight On Admission 67.6 kg Narrative: GENERAL: Well-nourished female, in no acute distress, lying comfortably in bed, and lethargic due to IV sedation SKIN: Warm and dry. Multiple bruises noted on legs. HEAD: Normocephalic. Atraumatic. No scleral icterus. No injection or drainage. PERRLA. MOM. NECK: Supple, trachea midline. No JVD or lymphadenopathy. CARDIOVASCULAR: Regular rate and rhythm without murmurs, gallops, or rubs. RESPIRATORY: Breath sounds equal bilaterally. No accessory muscle use. GASTROINTESTINAL: Abdomen soft, non-tender, nondistended. MUSCULOSKELETAL: No cyanosis, or edema. BACK: Nontender without obvious deformity. No CVA tenderness. NEURO: Lethargic and unarousable, unable to assess as patient currently sedated on IV Precedex Results - Labs CBC & Chem 7: 07/04/18 04:26 07/04/18 04:26 Labs: Short CBC 07/03/18 07/04/18 Range/Units 17:45 04:26 WBC 22.5 H 16.6 H (4.0-11.0) th/mm3 Hgb 15.7 H 14.2 (11.6-15.3) gm/dL Hct 45.2 41.2 (35.0-46.0) % Plt Count 274 215 (150-450) th/mm3 BMP 07/03/18 07/04/18 17:45 04:26 Sodium 141 145 Potassium 4.0 3.8 Chloride 101 108 H Carbon Dioxide 20.8 L 26.4 BUN 6 L 8 Creatinine 1.79 H 1.05 H Calcium 9.5 8.9 Liver Function 07/03/18 07/04/18 Range/Units 17:45 04:26 Total Bilirubin 0.7 0.6 (0.2-1.0) mg/dL AST 71 H 83 H (15-37) U/L ALT 25 27 (10-53) U/L Alkaline Phosphatase 59 52 (45-117) U/L Albumin 4.7 3.9 D (3.4-5.0) g/dL Urine 07/03/18 Range/Units 17:45 Urine Color Straw (Yellw/Straw) Urine Clarity Hazy H (Clear) Urine pH 5.0 (5.0-8.5) Ur Specific [place] 1.004 (1.002-1.035) Urine Protein Negative (Neg-Trace) mg/dL Urine Glucose (UA) Negative (Negative) mg/dL - Imaging Impressions Cervical Spine CT 07/03/18 16:55 CONCLUSION: 1. No acute findings on cervical spine CT. Head CT 07/03/18 16:55 CONCLUSION: 1. No acute intracranial abnormality. 2. Mild bilateral maxillary sinus mucosal disease. . Chest X-Ray 07/03/18 18:22 CONCLUSION: 1. No acute cardiopulmonary disease. Caprini VTE Risk Assessment Caprini VTE Risk Assessment: No/Low Risk (score <= 1) Caprini Risk Assessment Model: Point Value = 1 Point Value = 2 Point Value = 3 Point Value = 5 Age 41-60 Minor surgery BMI > 25 kg/m2 Swollen legs Varicose veins or History of unexplained or recurrent spontaneous Oral contraceptives or hormone replacement Sepsis (< 1 month) Serious lung disease, including pneumonia (< 1 month) Abnormal pulmonary function Acute myocardial infarction Congestive heart failure (< 1 month) History of inflammatory bowel disease Medical patient at bed rest Age 61-74 Arthroscopic surgery Major open surgery (> 45 min) Laparoscopic surgery (> 45 min) Malignancy Confined to bed (> 72 hours) Immobilizing plaster cast Central venous access Age >= 75 History of VTE Family history of VTE Factor V Leiden Prothrombin [id number] Lupus anticoagulant Anticardiolipin antibodies Elevated serum homocysteine Heparin-induced thrombocytopenia Other congenital or acquired thrombophilia Stroke (< 1 month) Elective arthroplasty Hip, pelvis, or leg fracture Acute spinal cord injury (< 1 month) Prophylaxis Regimen: Total Risk Factor Score Risk Level Prophylaxis Regimen 0-1 Low Early ambulation 2 Moderate Order ONE of the following: *Sequential Compression Device (SCD) *Heparin 5000 units SQ BID 3-4 Higher Order ONE of the following medications: *Heparin 5000 units SQ TID *Enoxaparin/Lovenox 40 mg SQ daily (WT < 150 kg, CrCl > 30 mL/min) *Enoxaparin/Lovenox 30 mg SQ daily (WT < 150 kg, CrCl > 10-29 mL/min) *Enoxaparin/Lovenox 30 mg SQ BID (WT < 150 kg, CrCl > 30 mL/min) AND/OR *Sequential Compression Device (SCD) 5 or more Highest Order ONE of the following medications: *Heparin 5000 units SQ TID (Preferred with Epidurals) *Enoxaparin/Lovenox 40 mg SQ daily (WT < 150 kg, CrCl > 30 mL/min) *Enoxaparin/Lovenox 30 mg SQ daily (WT < 150 kg, CrCl > 10-29 mL/min) *Enoxaparin/Lovenox 30 mg SQ BID (WT < 150 kg, CrCl > 30 mL/min) AND *Sequential Compression Device (SCD) Assessment and Plan - Assessment (1) Alcohol abuse with intoxication Code(s): F10.129 - Alcohol abuse with intoxication, unspecified Status: Acute (2) Marijuana abuse Code(s): F12.10 - Cannabis abuse, uncomplicated Status: Chronic (3) Borderline personality disorder Code(s): F60.3 - Borderline personality disorder Status: Chronic (4) Altered mental status Code(s): R41.82 - Altered mental status, unspecified Status: Acute (5) Acute kidney injury Code(s): N17.9 - Acute kidney failure, unspecified Status: Resolved (6) Bipolar disorder Code(s): F31.9 - Bipolar disorder, unspecified Status: Chronic - Plan This is a 43-year-old CF with PMHx of Bipolar disorder and Alcohol abuse admitted for inpatient management of altered mental status with possible seizure , patient was started on Lamotrigine for bipolar disorder 2 days prior to admission, patient was initially managed by the critical care team, we have now been consulted to take over her medical management, HD#2 07/04: On my evaluation today, patient is completely sedated after being started on a Precedex drip due to increased aggression this morning. 1. Altered Mental Status Per RN the patient this morning was AAO x2 however started to have increased aggression and was started on Precedex IV Likely Due to Alcohol WD leading to a possible seizure CT Head Negative Will obtain an EEG to rule out seizure D/O Cont. CIWA protocol Monitor for DT's 2. HTN No previous history Symptoms likely due to alcohol withdrawal Blood pressures elevated at 186/103 with heart rate 118 this morning Due to increased aggression this AM, patient placed on Precedex and now her blood pressure has normalized Once patient is weaned off of the Precedex, will consider clonidine patch as patient is unable to tolerate PO at this time Continue Vasotec and Labetalol PRN 3. Bipolar Disorder Currently holding Lamictal, Psych consulted for assistance with management once weaned off sedation 4. Alcohol Abuse Due to significant agitation and aggression this morning patient is now sedated with IV Precedex Continue CIWA protocol Cont. MV, Thiamine, and FA 5. Leukocytosis, improving Likely stress related WBC 16.6 today from 22.5 Patient afebrile, monitor for infection Neg CXR, Neg U/A Blood Cx pending from 07/03 6. Acute Kidney Injury, improving Creatinine 1.05 today from 1.79 Cont. NS at 84ml/hr F/U BMP in AM 7. DVT PPX: SCDs/Heparin 8. Dispo: Follow up psych recommendations, follow-up EEG to assess for seizures , plan to wean Precedex so we can further assess her mentation, monitor blood pressures. Code Status: full Discussed Condition With: RN, patient on IV sedation H&P: Quality - VTE Deep Vein Thrombosis/Pulmonary Embolism Present on Admission: No (4) Altered mental status Qualifiers: Altered mental status type: unspecified Qualified Code(s): R41.82 - Altered mental status, unspecified
[2018-07-04] MEDS: Sod Chloride 0.9% Inj 1,000 ML IV.CONT SCH ×2 (09:00→20:27)
[2018-07-04] MEDS: Senna/Docusate Sodium 8.6/50 MG Tablet PO SCH ×2 (09:32→20:28)
--- NOTE | 2018-07-04 14:55 | P.PNCC ---
Subjective Subjective Remarks/Hospital Course: 07/03: 43-year-old female patient with history of bipolar disorder, alcohol abuse, and cyst of ovary presents for an evaluation of altered mental status after she was acting weird in the bathtub. She was laying and rolling from side to side and banging her head uncontrollably. She was awake and continued to say "no" and would not say anything else. The patient was observed presenting the same behavior here in the ER upon arrival. According to EMS the patient has been observed in this behavior for a few hours. Per patient her reports she drinks alcohol daily however her alcohol level today is negative. Has been does not know how much alcohol she has consumed today if any. He also reports that she smokes marijuana. Denies any other illicit drug use that he knows of. On Wednesday she was started on Lamotrigine for bipolar disorder. Patient is allergic to sulfa. Symptoms are moderate to severe in severity. No known aggravating or relieving factors. 07/04: Sedated with Precedex. Gets agitated at times. Remains disoriented. Objective Vital Signs / I&O: Vital Signs 07/03/18 17:00 07/03/18 18:00 07/03/18 19:00 Temperature 97.8 F Pulse Rate 124 H 90 86 Respiratory Rate 32 H 18 12 Blood Pressure 128/74 118/67 109/64 Pulse Oximetry 99 99 07/03/18 21:00 07/04/18 00:56 07/04/18 01:00 Temperature 98.8 F 98.5 F Pulse Rate 104 H 97 H 89 Respiratory Rate 24 14 18 Blood Pressure 154/88 H 130/75 Pulse Oximetry 99 99 97 07/04/18 02:00 07/04/18 03:00 07/04/18 04:00 Temperature 100 F H Pulse Rate 81 70 135 H Respiratory Rate 12 12 46 H Blood Pressure 119/77 136/86 Pulse Oximetry 99 100 99 07/04/18 04:01 07/04/18 04:25 07/04/18 04:50 Temperature Pulse Rate 138 H 110 H 103 H Respiratory Rate 37 H 37 H 36 H Blood Pressure 186/105 H 196/138 H 167/89 H Pulse Oximetry 99 98 99 07/04/18 05:00 07/04/18 05:06 07/04/18 06:00 Temperature Pulse Rate 109 H 110 H 118 H Respiratory Rate 43 H 34 H 33 H Blood Pressure 140/107 H Pulse Oximetry 100 100 97 07/04/18 06:01 07/04/18 06:05 07/04/18 08:00 Temperature Pulse Rate 117 H 118 H 80 Respiratory Rate 27 H 29 H 15 Blood Pressure 158/113 H 186/103 H Pulse Oximetry 97 98 07/04/18 12:00 Temperature Pulse Rate Respiratory Rate 15 Blood Pressure Pulse Oximetry Intake & Output 07/03/18 07/04/18 07/04/18 18:59 06:59 18:59 Intake Total 1240 / 1240 Balance 1240 / 1240 Weight 68.946 kg 68 kg Intake: IV 1000 / 1000 NS Inj 1,000 ML @ Wide Open IV. 1000 / 1000 SIG BOLUS STARR Rx#:[id number] Oral 240 / 240 Other: # Incontinent Voids 1 Weight On Admission 67.6 kg Result Diagrams: 07/04/18 04:26 07/04/18 04:26 Objective Remarks: - Constitutional moderate distress, agitated - Routine HEENT Exam Head: Present: normocephalic, atraumatic Eye: Present: PERRL, normal accommodation ENT: Present: mucous membranes moist - Routine Neck Exam Present: supple, full ROM. Absent: JVD, carotid bruit - Routine Respiratory Exam Absent: accessory muscle use, rhonchi, stridor, wheezes - Routine Cardiovascular Exam Present: RRR, S1, S2 - Routine Abdominal Exam Present: soft, normoactive bowel sounds. Absent: tenderness, distended - Routine Extremities Exam Absent: cyanosis, clubbing, edema - Routine Skin Exam Present: intact. Absent: cyanosis, erythema - Routine Neurological Exam Present: altered mental status, moving all extremities Assessment and Plan - Assessment and Plan Plan: Altered mental status -CT head negative -Likely alcohol withdrawal -[facility] protocol -Monitor for DTs Bipolar disorder -Continue Lamictal Macrocytosis -B12 folate and multivitamin infusion Leukocytosis -Likely stress related -Monitor for infection -No antibiotics at this time, patient is afebrile -Blood cultures Acute kidney injury -Dehydration -IV fluid resuscitation -Strict I's and O's -Monitor creatinine and electrolyte levels DVT GI prophylaxis -Teds SCDs -Subcu Lovenox -Regular diet
[2018-07-04] MEDS: Dexmedetomidine Inj 1,000 MCG in Sodium Chlor 0.9% Inj 240 ML IV.CONT PRN ×2 (20:34→22:36)
--- NOTE | 2018-07-04 21:04 | MG ---
cc: Bishnu Stover MD ELECTROENCEPHALOGRAM NUMBER: [id number] INDICATION: On Precedex, found in a bathtub, banged her head, on Lamictal, alcohol abuse, bipolar, Haldol. DESCRIPTION: Diffuse theta slowing is seen at the 6-7 Hz range. She moves her legs a lot. Some talking. No epileptiform or seizure activity is noted. Photic stimulation is performed without significant posterior driving. IMPRESSION: Consistent with a mild to moderate diffuse encephalopathy, but no focal abnormalities are noted. No seizure activity is seen. MD JAZMIN Castellanos/migel , 08:16 PM , 08:20 PM
[2018-07-04] MEDS: lamoTRIgine 25 MG TABLET PO SCH (23:24)
[2018-07-05] MEDS: Multivitamin Inj 10 ML, Thiamine Inj 100 MG, Folic Acid Inj 1 MG in Sodium Chlor 0.9% I... IV.SIG SCH (02:16)
[2018-07-05] MEDS: Chlorhexidine Gluconate 2% 1 Pack (2 Cloths) TOPICAL SCH (03:24)
[2018-07-05] MEDS: Heparin - SQ 10,000 UNITS/ML Vial SQ SCH ×3 (03:24→21:13)
[2018-07-05 07:16] LABS: Baso % (Auto) 0.3 % (0.0-2.0); Eos # (Auto) 0.2 th/mm3 (0.0-0.4); Eos % (Auto) 4.2 % (0.0-4.0); Hematocrit 36.8 % (35.0-46.0); Hemoglobin 12.7 gm/dL (11.6-15.3); Lymph # (Auto) 2.2 th/mm3 (1.0-4.8); Lymph % (Auto) 37.7 % (9.0-44.0); Mean Corpuscular HGB Conc 34.5 % (32.0-36.0); Mean Corpuscular Hemoglobin 35.3 pg (27.0-34.0); Mean Corpuscular Volume 102.4 fL (80.0-100.0); Mean Platelet Volume 8.7 fL (7.0-11.0); Mono # (Auto) 0.4 th/mm3 (0.0-0.9); Mono % (Auto) 6.4 % (0.0-8.0); Neut % (Auto) 51.4 % (16.0-70.0); Platelet Count 164 th/mm3 (150-450); Red Blood Count 3.59 mil/mm3 (4.00-5.30); Red Cell Distribution Width 13.5 % (11.6-17.2); White Blood Count 5.9 th/mm3 (4.0-11.0)
[2018-07-05 07:39] LABS: Alanine Aminotransferase 29 U/L (10-53); Alkaline Phosphatase 39 U/L (45-117); Anion Gap 9 meq/L (5-15); Aspartate Aminotransferase 82 U/L (15-37); Blood Urea Nitrogen 6 mg/dL (7-18); Calcium 8.4 mg/dL (8.5-10.1); Carbon Dioxide 23.3 meq/L (21.0-32.0); Chloride 114 meq/L (98-107); Glomerular Filtration Rate Greater Than 89 mL/min (>89); Glucose,Random 105 mg/dL (74-106); Sodium 146 meq/L (136-145)
[2018-07-05 07:40] LABS: Potassium 3.9 meq/L (3.5-5.1)
[2018-07-05] MEDS: Sod Chloride 0.9% Inj 1,000 ML IV.CONT SCH (08:04)
[2018-07-05] MEDS: Senna/Docusate Sodium 8.6/50 MG Tablet PO SCH ×2 (08:05→20:35)
[2018-07-05] MEDS ORDERED: hydrALAZINE HCl Inj 20 MG/ML Vial IV.PUSH PRN (09:23)
[2018-07-05] MEDS ORDERED: Haloperidol Inj 5 MG/ML Ampul IV.PUSH ONE (09:30)
--- NOTE | 2018-07-05 10:32 | P.PNCC ---
Subjective Subjective Remarks/Hospital Course: 07/03: 43-year-old female patient with history of bipolar disorder, alcohol abuse, and cyst of ovary presents for an evaluation of altered mental status after she was acting weird in the bathtub. She was laying and rolling from side to side and banging her head uncontrollably. She was awake and continued to say "no" and would not say anything else. The patient was observed presenting the same behavior here in the ER upon arrival. According to EMS the patient has been observed in this behavior for a few hours. Per patient her reports she drinks alcohol daily however her alcohol level today is negative. Has been does not know how much alcohol she has consumed today if any. He also reports that she smokes marijuana. Denies any other illicit drug use that he knows of. On Wednesday she was started on Lamotrigine for bipolar disorder. Patient is allergic to sulfa. Symptoms are moderate to severe in severity. No known aggravating or relieving factors. 07/04: Sedated with Precedex. Gets agitated at times. Remains disoriented. 07/05: Appears to be paranoid. Thinks that people are going to kill her or throw her out of the window. Episodes of agitation. Precedex held this morning. Receiving Ativan and Haldol as needed. Bradycardic overnight which resolved after holding Precedex. Remains on clonidine patch. Elevated BP noted. Objective Vital Signs / I&O: Vital Signs 07/04/18 12:00 07/04/18 15:15 07/04/18 15:30 Temperature Pulse Rate 60 57 L Respiratory Rate 15 15 18 Blood Pressure 147/106 H 144/99 H Pulse Oximetry 100 99 07/04/18 15:46 07/04/18 16:00 07/04/18 16:23 Temperature 97.9 F Pulse Rate 45 L 45 L 47 L Respiratory Rate 14 14 14 Blood Pressure 120/86 117/81 121/81 Pulse Oximetry 99 98 99 07/04/18 16:30 07/04/18 16:45 07/04/18 17:00 Temperature Pulse Rate 51 L 52 L 52 L Respiratory Rate 14 14 14 Blood Pressure 122/87 123/84 122/89 Pulse Oximetry 98 98 98 07/04/18 17:30 07/04/18 17:42 07/04/18 17:44 Temperature Pulse Rate 56 L 63 58 L Respiratory Rate 12 20 14 Blood Pressure 159/107 H 157/112 H 163/110 H Pulse Oximetry 99 99 99 07/04/18 17:45 07/04/18 18:00 07/04/18 18:15 Temperature Pulse Rate 56 L 55 L 55 L Respiratory Rate 16 18 19 Blood Pressure 163/110 H 167/116 H 161/110 H Pulse Oximetry 99 100 100 07/04/18 18:23 07/04/18 18:30 07/04/18 18:45 Temperature Pulse Rate 60 57 L 52 L Respiratory Rate 16 12 14 Blood Pressure 167/107 H 157/105 H 163/109 H Pulse Oximetry 99 99 100 07/04/18 19:00 07/04/18 19:15 07/04/18 19:30 Temperature Pulse Rate 54 L 62 54 L Respiratory Rate 13 16 11 L Blood Pressure 162/108 H 167/109 H 170/114 H Pulse Oximetry 100 100 100 07/04/18 19:45 07/04/18 20:00 07/04/18 20:15 Temperature 98.9 F Pulse Rate 55 L 48 L 50 L Respiratory Rate 12 18 14 Blood Pressure 167/106 H 161/104 H 162/105 H Pulse Oximetry 100 100 100 07/04/18 20:30 07/04/18 21:00 07/04/18 21:30 Temperature Pulse Rate 50 L 50 L 57 L Respiratory Rate 17 14 16 Blood Pressure 158/105 H 163/106 H 167/107 H Pulse Oximetry 100 100 100 07/04/18 22:00 07/04/18 22:30 07/04/18 23:00 Temperature Pulse Rate 62 55 L 45 L Respiratory Rate 18 21 13 Blood Pressure 155/95 H 166/108 H 159/99 H Pulse Oximetry 100 100 100 07/04/18 23:30 07/05/18 00:00 07/05/18 00:30 Temperature 98.4 F Pulse Rate 56 L 48 L 52 L Respiratory Rate 20 16 12 Blood Pressure 162/103 H 167/108 H 166/103 H Pulse Oximetry 100 100 100 07/05/18 01:00 07/05/18 01:31 07/05/18 01:35 Temperature Pulse Rate 42 L 47 L 44 L Respiratory Rate 11 L 13 13 Blood Pressure 163/107 H 178/115 H 154/88 H Pulse Oximetry 100 100 100 07/05/18 02:00 07/05/18 02:30 07/05/18 02:38 Temperature Pulse Rate 46 L 39 L 37 L Respiratory Rate 22 11 L 13 Blood Pressure 165/98 H 168/101 H 164/90 H Pulse Oximetry 100 100 100 07/05/18 03:00 07/05/18 03:30 07/05/18 03:32 Temperature Pulse Rate 49 L 49 L 49 L Respiratory Rate 17 16 18 Blood Pressure 169/105 H 184/116 H 175/111 H Pulse Oximetry 100 100 100 07/05/18 04:00 Temperature 97.9 F Pulse Rate 41 L Respiratory Rate 19 Blood Pressure 175/99 H Pulse Oximetry 100 Intake & Output 07/04/18 07/05/18 07/05/18 18:59 06:59 18:59 Intake Total 1641.2 / 1641.2 1000 / 1000 Output Total 850 / 850 0 / 0 Balance 791.2 / 791.2 1000 / 1000 Weight 32.296 kg Intake: IV 1611.2 / 1611.2 1761.2 / 1761.2 1000 / 1000 Precedex Inj 1,000 MCG In NS 250 / 250 Inj 240 ML @ 0.2 MCG/KG/HR 3.38 mls/hr IV.CONT TITRATE PRN Rx# :[id number] Precedex Inj 200 MCG In NS Inj 100 / 100 48 ML @ 0.2 MCG/KG/HR 3.38 mls/ hr IV.CONT TITRATE PRN Rx#: [id number] NS Inj 1,000 ML @ 84 mls/hr IV. 1000 / 1000 1000 / 1000 1000 / 1000 CONT .[id number] [facility] Rx#:[id number] MVI-12 Inj 10 ML Thiamine Inj 511.2 / 511.2 511.2 / 511.2 100 MG Folvite Inj 1 MG In NS Inj 500 ML @ 127.8 mls/hr IV. SIG Q24H STARR Rx#:[id number] Oral 30 / 30 240 / 240 Output: Urine 100 / 100 0 / 0 Urine Amount (Catheter) 750 / 750 Straight 750 / 750 Other: # Incontinent Voids 1 Result Diagrams: 07/05/18 06:07 07/05/18 06:07 Objective Remarks: - Constitutional moderate distress, agitated - Routine HEENT Exam Head: Present: normocephalic, atraumatic Eye: Present: PERRL, normal accommodation ENT: Present: mucous membranes moist - Routine Neck Exam Present: supple, full ROM. Absent: JVD, carotid bruit - Routine Respiratory Exam Absent: accessory muscle use, rhonchi, stridor, wheezes - Routine Cardiovascular Exam Present: RRR, S1, S2 - Routine Abdominal Exam Present: soft, normoactive bowel sounds. Absent: tenderness, distended - Routine Extremities Exam Absent: cyanosis, clubbing, edema - Routine Skin Exam Present: intact. Absent: cyanosis, erythema - Routine Neurological Exam Present: altered mental status, moving all extremities Assessment and Plan - Assessment and Plan Plan: Altered mental status -CT head negative -Acute psychosis versus alcohol withdrawal -[facility] protocol -Awaiting psychiatry consult Bipolar disorder -Lamictal on hold. Psychiatry consult pending. Macrocytosis -B12 folate and multivitamin infusion Leukocytosis -Likely stress related -Monitor for infection -No antibiotics at this time, patient is afebrile -Blood cultures Acute kidney injury -Dehydration -IV fluid resuscitation -Strict I's and O's -Monitor creatinine and electrolyte levels DVT GI prophylaxis -Teds SCDs -Subcu Lovenox -Regular diet
[2018-07-05] MEDS: Dextrose 5%/Lactated Ringer's 1,000 ML IV.CONT SCH ×2 (12:12→20:34)
--- NOTE | 2018-07-05 13:08 | P.CONPSY ---
Provisional Diagnosis Admission Date: July 03, 2018 19:11 [place] I.: Unspecified psychosis vs Delirium due to GABAergics withdrawals History of Present Illness Service: CC Primary Care Provider: UNKNOWN Chief Complaint: AMS History of Present Illness: The patient is a 43-year-old woman, domiciled with her father in [place], unemployed, well known by the psychiatric service, with a psychiatric history of bipolar disorder, borderline personality disorder, alcohol induced mood disorder, alcohol use disorder, no previous psychiatric admissions, no previous suicide attempts, but extensive history of self cutting behavior without SI multiple time Isauro acted due to alcohol related problems, who presented for an evaluation of altered mental status after she was acting weird in the bathtub. She was laying and rolling from side to side and banging her head uncontrollably. She was awake and continued to say "no" and would not say anything else. The patient was observed presenting the same behavior here in the ER upon arrival. According to EMS the patient has been observed in this behavior for a few hours. Per patient her reports she drinks alcohol daily however her alcohol level today is negative. Has been does not know how much alcohol she has consumed today if any. He also reports that she smokes marijuana. Denies any other illicit drug use that he knows of. On Wednesday she was started on Lamotrigine for bipolar disorder. Patient was consulted to psychiatry to address symptoms of psychosis. On my psychiatric evaluation I find a patient restrained in 4 points, quite agitated, very disorganized, irritated and having active paranoia and visual hallucinations. The patient is a stating that the nurse beside me is been trying to kill her. At the same time she is voicing we are trying to kill her dog and there were people around the unit watching her and trying to harm her. The patient is completely disoriented in time and place, with clear fluctuating levels of consciousness, internal preoccupation and ideas of reference. Unable to provide any meaningful information for the psychiatric assessment at this moment. PPHx: with a psychiatric history of bipolar disorder, alcohol induced mood disorder, alcohol use disorder, no previous psychiatric admissions, no previous suicide attempts, but extensive history of self-cutting behavior without SI multiple time Isauro acted due to alcohol related problems PMHx: Ovarian cyst Sustance Use: Patient is full no abuser of alcohol and benzodiazepine Social Hx: woman, domiciled with her father in [place], unemployed Review of Systems All other systems reviewed negative except as stated in HPI Psychiatric: Reports mood swings, Reports paranoia PMFSH - History History Provided By: Family Member, Medical Record - Medical / Surgical Hx Neg / Unobtainable Medical Problems Denied: Unable to Obtain - Medical History Medical History: Medical History (Last Reviewed 07/04/18 @ 09:46 by Renetta Jorge MD) Bipolar disorder (Chronic) Cyst of ovary (Acute) Rib pain on left side (Acute) Alcohol abuse (Acute) Depression (Acute) - Surgical History Surgical History: Surgical History (Last Reviewed 07/04/18 @ 09:46 by Renetta Jorge MD) No history of previous surgery (Acute) - Family History Family History: Family History (Last Updated 07/04/18 @ 09:46 by Renetta Jorge MD) Other Family history unknown - Tobacco History Second Hand Smoke Exposure: Yes Tobacco Use In Past 30 Days: Yes Smoking Status: Current every day smoker Tobacco Type: Cigarettes - Alcohol History How Often Do You Have a Drink Containing Alcohol: 4 or more times a week ( ) - Substance Use History Substance History: Active Abuse - Substance Use Type Marijuana Status: Active Route Used: Inhalation Reason for Use: Calm Down - Travel History Recent Travel in the [place] Within the Last 8 Weeks: No Recent Travel Out of the Country Within the Last 8 Weeks: No - Immunization History Tetanus Immunization: <5 Years Medications and Allergies Active Medications: Active Medications Acetaminophen (Tylenol) 650 mg PO Q6H PRN PRN Reason: PAIN 1-10 AND/OR FEVER >101F Al Hydroxide/Mg Hydroxide (Milk Of Magnfarrukh Liq) 30 ml PO Q12H PRN PRN Reason: Mild Constipation Albuterol (Duoneb Neb (Prn)) 1 ampul NEB Q2HR NEB PRN PRN Reason: WHEEZING Bisacodyl (Dulcolax Supp) 10 mg RECTAL DAILY PRN PRN Reason: SEVERE CONSITIPATION Chlorhexidine Gluconate (Chlorhexidine 2% Cloth) 3 pack TOPICAL DAILY@0400 [facility] Stop: 07/09/18 03:59 Last Admin: 07/05/18 03:24 Dose: 3 pack Chlorhexidine Gluconate (Chlorhexidine 2% Cloth) 3 pack TOPICAL DAILY@0400 PRN PRN Reason: Extra cloth needed Stop: 07/09/18 03:59 Clonidine HCl (Catapress-Tts 0.1 Mg Patch.7d) 1 patch T-DERMAL Q7D [facility] Last Admin: 07/04/18 23:24 Dose: Not Given Enalaprilat (Vasotec Inj) 2.5 mg IV.PUSH Q6H PRN PRN Reason: SBP>160, DBP>90 Flumazenil (Romazecon Inj) 0.2 mg IV.PUSH Q1M PRN PRN Reason: OVERSEDATION Haloperidol Lactate (Haldol Inj) 5 mg IV.PUSH Q4HR [facility] Heparin Sodium (Porcine) (Heparin Inj) 5,000 units SQ Q8H [facility] Last Admin: 07/05/18 12:35 Dose: 5,000 units Hydralazine HCl (Apresoline Inj) 20 mg IV.PUSH Q4H PRN PRN Reason: SBP >100 Multivitamins 10 ml/ Thiamine HCl 100 mg/ Folic Acid 1 mg/Sodium Chloride 511.2 mls @ 127.8 mls/hr IV.SIG Q24H [facility] Last Infusion: 07/05/18 06:18 Dose: Infused Dexmedetomidine HCl 1,000 mcg/ (Sodium Chloride) 250 mls @ 3.38 mls/hr IV.CONT TITRATE PRN; Protocol PRN Reason: Per Protocol Last Titration: 07/05/18 06:15 Dose: 0.9 mcg/kg/hr, 15.21 mls/hr Dextrose/Lactated Ringer's (D5w/Lr Inj) 1,000 mls @ 125 mls/hr IV.CONT .Q8H [facility] Last Admin: 07/05/18 12:12 Dose: 125 mls/hr Labetalol HCl (Trandate Inj) 10 mg IV.PUSH Q4H PRN PRN Reason: SBP>160, DBP>90 Lactulose (Lactulose Liq) 30 ml PO DAILY PRN PRN Reason: SEVERE CONSITIPATION Lorazepam (Ativan Inj) 1 mg IV.PUSH Q4H PRN PRN Reason: for CIWA 8-10 Lorazepam (Ativan) 1 mg PO Q4H PRN PRN Reason: for CIWA 8-10 Lorazepam (Ativan) 2 mg PO Q2H PRN PRN Reason: for CIWA 11-14 Lorazepam (Ativan Inj) 2 mg IV.PUSH Q2H PRN PRN Reason: for CIWA 11-14 Lorazepam (Ativan Inj) 2 mg IV.PUSH Q1H PRN PRN Reason: for CIWA 15-20 Last Admin: 07/04/18 05:31 Dose: 2 mg Lorazepam (Ativan Inj) 2 mg IV.PUSH Q15M PRN PRN Reason: for CIWA > 20 Last Admin: 07/05/18 12:36 Dose: 2 mg Morphine Sulfate (Morphine Inj) 2 mg IV.PUSH Q2H PRN PRN Reason: PAIN SCALE 6 TO 10 Ondansetron HCl (Zofran Inj) 4 mg IV.PUSH Q6H PRN PRN Reason: NAUSEA OR VOMITING Patch Removal (Remove Old Patch) 1 each T-DERMAL Q7D [facility] Quetiapine Fumarate (Seroquel) 50 mg PO BID [facility] Senna/Docusate Sodium (Ava-Colace) 1 tab PO BID [facility] Last Admin: 07/05/18 08:05 Dose: Not Given Sennosides (Senokot) 17.2 mg PO Q12H PRN PRN Reason: Moderate Constipation Sodium Chloride (Ns Flush) 2 ml IV.FLUSH BID [facility] Last Admin: 07/05/18 08:05 Dose: 2 ml Sodium Chloride (Ns Flush) 2 ml IV.FLUSH UNSCH PRN PRN Reason: FLUSH AFTER USING IV ACCESS Allergies Allergy/AdvReac Type Severity Reaction Status Date / Time Sulfa (Sulfonamide Allergy Severe Rash Verified 07/03/18 18:27 Antibiotics) Home Medications Medication Instructions Recorded Confirmed Type lamotrigine 50 mg PO BID 07/03/18 07/03/18 History Exam Vital signs: Vital Signs 07/04/18 15:15 07/04/18 15:30 07/04/18 15:46 Temperature Pulse Rate 60 57 L 45 L Respiratory Rate 15 18 14 Blood Pressure 147/106 H 144/99 H 120/86 Pulse Oximetry 100 99 99 07/04/18 16:00 07/04/18 16:23 07/04/18 16:30 Temperature 97.9 F Pulse Rate 45 L 47 L 51 L Respiratory Rate 14 14 14 Blood Pressure 117/81 121/81 122/87 Pulse Oximetry 98 99 98 07/04/18 16:45 07/04/18 17:00 07/04/18 17:30 Temperature Pulse Rate 52 L 52 L 56 L Respiratory Rate 14 14 12 Blood Pressure 123/84 122/89 159/107 H Pulse Oximetry 98 98 99 07/04/18 17:42 07/04/18 17:44 07/04/18 17:45 Temperature Pulse Rate 63 58 L 56 L Respiratory Rate 20 14 16 Blood Pressure 157/112 H 163/110 H 163/110 H Pulse Oximetry 99 99 99 07/04/18 18:00 07/04/18 18:15 07/04/18 18:23 Temperature Pulse Rate 55 L 55 L 60 Respiratory Rate 18 19 16 Blood Pressure 167/116 H 161/110 H 167/107 H Pulse Oximetry 100 100 99 07/04/18 18:30 07/04/18 18:45 07/04/18 19:00 Temperature Pulse Rate 57 L 52 L 54 L Respiratory Rate 12 14 13 Blood Pressure 157/105 H 163/109 H 162/108 H Pulse Oximetry 99 100 100 07/04/18 19:15 07/04/18 19:30 07/04/18 19:45 Temperature Pulse Rate 62 54 L 55 L Respiratory Rate 16 11 L 12 Blood Pressure 167/109 H 170/114 H 167/106 H Pulse Oximetry 100 100 100 07/04/18 20:00 07/04/18 20:15 07/04/18 20:30 Temperature 98.9 F Pulse Rate 48 L 50 L 50 L Respiratory Rate 18 14 17 Blood Pressure 161/104 H 162/105 H 158/105 H Pulse Oximetry 100 100 100 07/04/18 21:00 07/04/18 21:30 07/04/18 22:00 Temperature Pulse Rate 50 L 57 L 62 Respiratory Rate 14 16 18 Blood Pressure 163/106 H 167/107 H 155/95 H Pulse Oximetry 100 100 100 07/04/18 22:30 07/04/18 23:00 07/04/18 23:30 Temperature Pulse Rate 55 L 45 L 56 L Respiratory Rate 21 13 20 Blood Pressure 166/108 H 159/99 H 162/103 H Pulse Oximetry 100 100 100 07/05/18 00:00 07/05/18 00:30 07/05/18 01:00 Temperature 98.4 F Pulse Rate 48 L 52 L 42 L Respiratory Rate 16 12 11 L Blood Pressure 167/108 H 166/103 H 163/107 H Pulse Oximetry 100 100 100 07/05/18 01:31 07/05/18 01:35 07/05/18 02:00 Temperature Pulse Rate 47 L 44 L 46 L Respiratory Rate 13 13 22 Blood Pressure 178/115 H 154/88 H 165/98 H Pulse Oximetry 100 100 100 07/05/18 02:30 07/05/18 02:38 07/05/18 03:00 Temperature Pulse Rate 39 L 37 L 49 L Respiratory Rate 11 L 13 17 Blood Pressure 168/101 H 164/90 H 169/105 H Pulse Oximetry 100 100 100 07/05/18 03:30 07/05/18 03:32 07/05/18 04:00 Temperature 97.9 F Pulse Rate 49 L 49 L 41 L Respiratory Rate 16 18 19 Blood Pressure 184/116 H 175/111 H 175/99 H Pulse Oximetry 100 100 100 07/05/18 04:30 07/05/18 05:00 07/05/18 05:30 Temperature Pulse Rate 44 L 51 L 46 L Respiratory Rate 14 14 12 Blood Pressure 187/97 H 157/99 H 171/100 H Pulse Oximetry 100 100 100 07/05/18 06:00 07/05/18 06:29 07/05/18 06:30 Temperature Pulse Rate 50 L 50 L 46 L Respiratory Rate 9 L 15 15 Blood Pressure 165/100 H 179/108 H 168/104 H Pulse Oximetry 100 100 100 07/05/18 06:51 07/05/18 07:00 07/05/18 07:30 Temperature Pulse Rate 46 L 42 L 50 L Respiratory Rate 12 14 17 Blood Pressure 175/108 H 162/105 H 171/111 H Pulse Oximetry 100 100 100 07/05/18 07:41 07/05/18 07:49 07/05/18 08:00 Temperature 98.5 F Pulse Rate 52 L 57 L 77 Respiratory Rate 12 14 15 Blood Pressure 176/117 H 171/115 H 167/101 H Pulse Oximetry 100 100 98 07/05/18 08:20 07/05/18 08:30 07/05/18 09:00 Temperature Pulse Rate 55 L 63 71 Respiratory Rate 14 15 15 Blood Pressure 181/105 H 180/116 H 162/79 H Pulse Oximetry 100 100 100 07/05/18 09:27 07/05/18 09:39 07/05/18 10:00 Temperature Pulse Rate 75 86 78 Respiratory Rate 24 14 14 Blood Pressure 151/71 H 154/99 H 148/89 H Pulse Oximetry 99 07/05/18 10:30 07/05/18 10:53 07/05/18 11:00 Temperature Pulse Rate 82 92 H 83 Respiratory Rate 15 15 11 L Blood Pressure 169/87 H 180/79 H 181/77 H Pulse Oximetry 07/05/18 11:30 Temperature Pulse Rate 88 Respiratory Rate 21 Blood Pressure 173/75 H Pulse Oximetry Intake & Output 07/04/18 07/05/18 07/05/18 18:59 06:59 18:59 Intake Total 1641.2 / 1641.2 1000 / 1000 Output Total 850 / 850 0 / 0 Balance 791.2 / 791.2 1000 / 1000 Weight 32.296 kg Intake: IV 1611.2 / 1611.2 1761.2 / 1761.2 1000 / 1000 Precedex Inj 1,000 MCG In NS 250 / 250 Inj 240 ML @ 0.2 MCG/KG/HR 3.38 mls/hr IV.CONT TITRATE PRN Rx# :[id number] Precedex Inj 200 MCG In NS Inj 100 / 100 48 ML @ 0.2 MCG/KG/HR 3.38 mls/ hr IV.CONT TITRATE PRN Rx#: [id number] NS Inj 1,000 ML @ 84 mls/hr IV. 1000 / 1000 1000 / 1000 1000 / 1000 CONT .[id number] [facility] Rx#:[id number] MVI-12 Inj 10 ML Thiamine Inj 511.2 / 511.2 511.2 / 511.2 100 MG Folvite Inj 1 MG In NS Inj 500 ML @ 127.8 mls/hr IV. SIG Q24H [facility] Rx#:[id number] Oral 30 / 30 240 / 240 Output: Urine 100 / 100 0 / 0 Urine Amount (Catheter) 750 / 750 Straight 750 / 750 Other: # Incontinent Voids 1 Mental Status Examination Appearance: Disheveled Consciousness: Vigilant, Obtunded Orientation: Person Speech: Incoherent Language: Perseveration Fund of Knowledge: Poor Attention and Concentration: Inadequate Memory: Impaired Mood: Oppositional, Irritable Affect: Irritable Thought Process & Associations: Loose associations Thought Content: Bizarre thinking Hallucination Type: Visual Delusion Type: Bizarre, Paranoid Suicidal Ideation: No Suicidal Plan: No Suicidal Intention: No Homicidal Ideation: No Homicidal Plan: No Homicidal Intention: No Insight: Poor Judgment: Poor Assessment and Plan - Assessment (1) Delirium Code(s): R41.0 - Disorientation, unspecified Status: Acute - Plan Plan: On my psychiatric evaluation today the patient presents agitated, hypervigilant , she is restrained in 4 points, very disorganized, internally preoccupied, with active visual hallucinations and prominent paranoia, just oriented in person, completely disoriented in time and place, with a significant attention deficit, unable to provide any meaningful information for the psychiatric assessment. This is a patient well-known by the service, with a psychiatric history of bipolar disorder, borderline personality disorder, benzodiazepines and alcohol use disorder, who has been Box acted frequently due to alcohol related problems, previous suicidal attempts, self cutting behavior, poor impulse control, who at this moment seems to be delirious most probably related with significant NORTH deprivation most probably secondary to benzodiazepine/ alcohol withdrawal. Continue CIWA. We will add Haldol 5 mg IV every 4 hours as needed agitation/paranoia. Will add Seroquel 50 mg p.o. every 12 for psychosis , whole antipsychotics his QTC is over 460. Patient may benefit of a psychiatric admission if psychosis persist beyond medical clearance. She can be adequate for MedPsych unit. I will follow-up. Justification for Continued Inpatient Stay: Might benefit of psychiatric admission. I will follow-up.
[2018-07-05] MEDS ORDERED: Haloperidol Inj 5 MG/ML Ampul IM ONE (15:00)
[2018-07-05] MEDS ORDERED: Midazolam Inj 5 MG/ML 1 ML Vial ONE (15:43)
[2018-07-05] MEDS ORDERED: Haloperidol Inj 5 MG/ML Ampul IV.PUSH SCH (16:00)
[2018-07-05] MEDS ORDERED: Midazolam Inj 5 MG/ML 1 ML Vial IV.PUSH ONE (16:04)
[2018-07-05] MEDS ORDERED: Magnesium Sulfate Inj 2 GM in Sodium Chlor 0.9% Inj 96 ML IV.SIG ONE (17:45)
[2018-07-05] MEDS: Mag Sulf 1 gm/100 ml Premix 100 ML IV.SIG SCH ×2 (18:18→20:33)
--- NOTE | 2018-07-05 19:26 | ECG ---
Date Performed: 07/05/2018 Time Performed: 16:58:11 PTAGE: 43 years EKG: Sinus rhythm PROLONGED QT INTERVAL ABNORMAL ECG Compared to prior electrocardiogram, QT interval may have lengthe getachew. PREVIOUS TRACING : 01/06/2008 12.51 DOCTOR: Tez Kc Interpretating Date/Time 07/05/2018 19:25:19
[2018-07-05] MEDS: QUEtiapine 25 MG Tablet PO SCH (20:35)
[2018-07-06] MEDS: Dexmedetomidine Inj 1,000 MCG in Sodium Chlor 0.9% Inj 240 ML IV.CONT PRN (01:18)
[2018-07-06] MEDS: Heparin - SQ 10,000 UNITS/ML Vial SQ SCH ×3 (03:09→20:32)
[2018-07-06] MEDS: Chlorhexidine Gluconate 2% 1 Pack (2 Cloths) TOPICAL SCH (03:10)
[2018-07-06] MEDS: Multivitamin Inj 10 ML, Thiamine Inj 100 MG, Folic Acid Inj 1 MG in Sodium Chlor 0.9% I... IV.SIG SCH (03:10)
[2018-07-06] MEDS: Dextrose 5%/Lactated Ringer's 1,000 ML IV.CONT SCH ×3 (03:11→20:33)
[2018-07-06] MEDS: Senna/Docusate Sodium 8.6/50 MG Tablet PO SCH ×2 (08:28→20:34)
[2018-07-06] MEDS: QUEtiapine 25 MG Tablet PO SCH ×2 (08:28→20:33)
--- NOTE | 2018-07-06 09:47 | ECG ---
Date Performed: 07/06/2018 Time Performed: 08:41:50 PTAGE: 43 years EKG: Baseline artifact present Sinus rhythm NORMAL ECG No significant change from prior electrocardiogram. PREVIOUS TRACING : 07/05/2018 16.58 DOCTOR: Tez Kc Interpretating Date/Time 07/06/2018 09:46:14
--- NOTE | 2018-07-06 12:57 | P.PNPSY ---
Subjective Remarks: The patient was seen today for psychiatric reevaluation. The patient continues to be restrained in 4 points. She continues to be very disorganized, paranoid, stating that she is kidnap and there is a plot for nurses and doctors to steal her money. "You can ask Ama, She knows everything". His left agitated and hyperactive than yesterday, but still having loosening of associations, paranoia, internal preoccupation. She is oriented in person, partially oriented in place, complete disoriented in time. She denies suicidal and homicidal ideation, she denies visual and auditory hallucinations Mental Status Examination Appearance: Disheveled Consciousness: Vigilant, Obtunded Orientation: Person Speech: Incoherent Language: Perseveration Fund of Knowledge: Poor Attention and Concentration: Inadequate Memory: Impaired Mood: Oppositional, Irritable Affect: Irritable Thought Process & Associations: Loose associations Thought Content: Bizarre thinking Hallucination Type: Visual Delusion Type: Bizarre, Paranoid Suicidal Ideation: No Suicidal Plan: No Suicidal Intention: No Homicidal Ideation: No Homicidal Plan: No Homicidal Intention: No Insight: Poor Judgment: Poor Assessment and Plan - Assessment (1) Delirium Code(s): R41.0 - Disorientation, unspecified Status: Acute - Plan Plan: QTc interval is 456. We will increase Seroquel 200 mg twice daily. Haldol 5 mg IM every 8 hours as needed severe agitation and aggressive behavior. Continue CIWA. Patient will be transferred to psychiatry once medically stable. Justification for Continued Inpatient Stay: I have initiated the Box act the patient, she would be transferred to psychiatry once medically stable
[2018-07-06 13:18] LABS: Alanine Aminotransferase 30 U/L (10-53); Alkaline Phosphatase 43 U/L (45-117); Anion Gap 9 meq/L (5-15); Aspartate Aminotransferase 71 U/L (15-37); Blood Urea Nitrogen 2 mg/dL (7-18); Calcium 8.9 mg/dL (8.5-10.1); Chloride 111 meq/L (98-107); Glomerular Filtration Rate Greater Than 89 mL/min (>89); Glucose,Random 111 mg/dL (74-106); Magnesium 1.8 mg/dL (1.5-2.5); Phosphorus 2.8 mg/dL (2.5-4.9); Sodium 145 meq/L (136-145); Total Protein 6.2 g/dL (6.4-8.2)
[2018-07-06 13:24] LABS: Potassium 2.8 meq/L (3.5-5.1)
[2018-07-06] MEDS: Potassium Chlor 20 mEq Premix 20 MEQ/100 ML PIGGYBACK IV.SIG SCH ×2 (15:11→16:31)
[2018-07-06] MEDS ORDERED: Potassium Chloride 25 MEQ Effervescent Tablet PO ONE (15:15)
--- NOTE | 2018-07-06 16:25 | P.PNCC ---
Subjective Subjective Remarks/Hospital Course: 07/03: 43-year-old female patient with history of bipolar disorder, alcohol abuse, and cyst of ovary presents for an evaluation of altered mental status after she was acting weird in the bathtub. She was laying and rolling from side to side and banging her head uncontrollably. She was awake and continued to say "no" and would not say anything else. The patient was observed presenting the same behavior here in the ER upon arrival. According to EMS the patient has been observed in this behavior for a few hours. Per patient her reports she drinks alcohol daily however her alcohol level today is negative. Has been does not know how much alcohol she has consumed today if any. He also reports that she smokes marijuana. Denies any other illicit drug use that he knows of. On Wednesday she was started on Lamotrigine for bipolar disorder. Patient is allergic to sulfa. Symptoms are moderate to severe in severity. No known aggravating or relieving factors. 07/04: Sedated with Precedex. Gets agitated at times. Remains disoriented. 07/05: Appears to be paranoid. Thinks that people are going to kill her or throw her out of the window. Episodes of agitation. Precedex held this morning. Receiving Ativan and Haldol as needed. Bradycardic overnight which resolved after holding Precedex. Remains on clonidine patch. Elevated BP noted. 07/06: Received 2 doses of Geodon yesterday., Today though still appears to have paranoia. Objective Vital Signs / I&O: Vital Signs 07/05/18 16:30 07/05/18 17:00 07/05/18 17:21 Temperature Pulse Rate 83 80 80 Respiratory Rate 21 17 14 Blood Pressure 132/85 143/90 H 132/88 Pulse Oximetry 98 97 98 07/05/18 17:30 07/05/18 18:00 07/05/18 18:30 Temperature Pulse Rate 80 86 87 Respiratory Rate 13 15 13 Blood Pressure 139/94 H 152/99 H 153/104 H Pulse Oximetry 97 97 98 07/05/18 19:00 07/05/18 19:30 07/05/18 20:00 Temperature 98.6 F Pulse Rate 95 H 105 H 96 H Respiratory Rate 13 16 15 Blood Pressure 160/102 H 165/108 H 175/104 H Pulse Oximetry 98 98 97 07/05/18 20:30 07/05/18 21:00 07/05/18 21:30 Temperature Pulse Rate 103 H 85 90 Respiratory Rate 15 14 14 Blood Pressure 177/106 H 154/101 H 159/101 H Pulse Oximetry 97 97 96 07/05/18 21:36 07/05/18 21:37 07/05/18 22:00 Temperature Pulse Rate 90 87 93 H Respiratory Rate 15 13 13 Blood Pressure 161/104 H 159/99 H 145/101 H Pulse Oximetry 96 96 97 07/05/18 22:30 07/05/18 23:00 07/06/18 00:00 Temperature Pulse Rate 96 H 92 H 83 Respiratory Rate 14 13 10 L Blood Pressure 153/102 H 166/98 H 141/94 H Pulse Oximetry 97 98 97 07/06/18 01:00 07/06/18 02:00 07/06/18 02:32 Temperature Pulse Rate 82 102 H 85 Respiratory Rate 14 15 16 Blood Pressure 132/99 H 177/109 H 145/106 H Pulse Oximetry 96 99 98 07/06/18 03:00 07/06/18 03:30 07/06/18 04:00 Temperature 98 F Pulse Rate 80 79 81 Respiratory Rate 13 13 15 Blood Pressure 154/100 H 144/88 H 148/99 H Pulse Oximetry 98 98 98 07/06/18 04:30 07/06/18 05:00 07/06/18 05:32 Temperature Pulse Rate 82 84 74 Respiratory Rate 12 14 14 Blood Pressure 160/98 H 149/103 H 140/95 H Pulse Oximetry 98 98 97 07/06/18 06:00 07/06/18 06:30 07/06/18 07:00 Temperature Pulse Rate 71 70 68 Respiratory Rate 14 15 14 Blood Pressure 144/98 H 138/97 H 134/93 H Pulse Oximetry 97 97 97 07/06/18 07:30 07/06/18 08:00 07/06/18 08:30 Temperature 97.8 F Pulse Rate 68 68 72 Respiratory Rate 14 13 11 L Blood Pressure 134/94 H 140/94 H 137/95 H Pulse Oximetry 98 96 88 L 07/06/18 09:00 07/06/18 09:30 07/06/18 09:33 Temperature Pulse Rate 79 98 H 93 H Respiratory Rate 16 17 11 L Blood Pressure 141/99 H 154/100 H 131/94 H Pulse Oximetry 97 97 97 07/06/18 10:00 07/06/18 10:30 07/06/18 11:00 Temperature Pulse Rate 97 H 100 H 85 Respiratory Rate 14 16 14 Blood Pressure 149/107 H 141/105 H 132/88 Pulse Oximetry 98 92 L 07/06/18 11:30 07/06/18 12:00 Temperature 97.5 F L Pulse Rate 78 72 Respiratory Rate 15 12 Blood Pressure 132/96 H 122/86 Pulse Oximetry 98 Intake & Output 07/05/18 07/06/18 07/06/18 18:59 06:59 18:59 Intake Total 1050 / 1050 3450 / 3450 1511.20 / 1511.20 Output Total 900 / 900 1800 / 1800 Balance 150 / 150 1650 / 1650 1511.20 / 1511.20 Weight 71.3 kg Intake: IV 1000 / 1000 3450 / 3450 1511.20 / 1511.20 Precedex Inj 1,000 MCG In NS 250 / 250 Inj 240 ML @ 0.2 MCG/KG/HR 3.38 mls/hr IV.CONT TITRATE PRN Rx# :[id number] D5W/LR Inj 1,000 ML @ 125 mls/ 2000 / 2000 1000 / 1000 hr IV.CONT .Q8H [facility] Rx#: [id number] NS Inj 1,000 ML @ 84 mls/hr IV. 1000 / 1000 CONT .[id number] [facility] Rx#:[id number] Magnesium Sulfate 1 gm/D5W 100 200 / 200 ml Premix 100 ML @ 100 mls/hr IV.SIG Q1H [facility] Rx#:[id number] MVI-12 Inj 10 ML Thiamine Inj 511.20 / 511.20 100 MG Folvite Inj 1 MG In NS Inj 500 ML @ 127.8 mls/hr IV. SIG Q24H [facility] Rx#:[id number] Oral 50 / 50 Output: Urine 900 / 900 1800 / 1800 Other: # Incontinent Voids 1 # Bowel Movements 0 0 Result Diagrams: 07/05/18 06:07 07/06/18 12:12 Objective Remarks: - Constitutional moderate distress, agitated - Routine HEENT Exam Head: Present: normocephalic, atraumatic Eye: Present: PERRL, normal accommodation ENT: Present: mucous membranes moist - Routine Neck Exam Present: supple, full ROM. Absent: JVD, carotid bruit - Routine Respiratory Exam Absent: accessory muscle use, rhonchi, stridor, wheezes - Routine Cardiovascular Exam Present: RRR, S1, S2 - Routine Abdominal Exam Present: soft, normoactive bowel sounds. Absent: tenderness, distended - Routine Extremities Exam Absent: cyanosis, clubbing, edema - Routine Skin Exam Present: intact. Absent: cyanosis, erythema - Routine Neurological Exam Present: Awake, alert, no she is in the hospital. Moving all 4 extremities. Continues to be paranoid Assessment and Plan - Assessment and Plan Plan: Altered mental status -CT head negative -Acute psychosis versus alcohol withdrawal -[facility] protocol -Being followed by psychiatry. -Received Geodon yesterday. On Haldol as needed and Seroquel per psychiatry. -Titrate off Precedex Bipolar disorder -Lamictal on hold. Psychiatry consult noted Macrocytosis -B12 folate and multivitamin infusion Leukocytosis -Likely stress related -Monitor for infection -No antibiotics at this time, patient is afebrile -Blood cultures Acute kidney injury -Dehydration -IV fluid resuscitation -Strict I's and O's -Monitor creatinine and electrolyte levels DVT GI prophylaxis -Teds SCDs -Subcu Lovenox -Regular diet Patient remains off Precedex may transfer to med psych tomorrow. D/W Dr. Silva. Consult and transfer to hospitalist service for further medical management. Critical care will be signing off.
[2018-07-07] MEDS: Heparin - SQ 10,000 UNITS/ML Vial SQ SCH ×3 (03:41→21:51)
[2018-07-07] MEDS: Chlorhexidine Gluconate 2% 1 Pack (2 Cloths) TOPICAL SCH (03:45)
[2018-07-07] MEDS: Multivitamin Inj 10 ML, Thiamine Inj 100 MG, Folic Acid Inj 1 MG in Sodium Chlor 0.9% I... IV.SIG SCH (06:12)
[2018-07-07] MEDS: Dextrose 5%/Lactated Ringer's 1,000 ML IV.CONT SCH ×3 (06:14→12:38)
[2018-07-07] MEDS: Senna/Docusate Sodium 8.6/50 MG Tablet PO SCH ×2 (08:42→21:52)
[2018-07-07] MEDS: QUEtiapine 25 MG Tablet PO SCH ×2 (08:42→21:52)
--- NOTE | 2018-07-07 15:14 | P.PNIM ---
Subjective Interval history: Patient states that she try to eat food earlier. She denies any suicidal homicidal ideations. She states that the reason she here in the hospital is she is has a bad allergic reaction to a "medication she took and went crazy". Physical Exam Vital signs: Vital Signs 07/06/18 15:30 07/06/18 16:00 07/06/18 16:30 Temperature 97.8 F Pulse Rate 83 84 82 Respiratory Rate 16 18 14 Blood Pressure 140/99 H 132/94 H 141/95 H Pulse Oximetry 98 97 94 L 07/06/18 17:00 07/06/18 17:30 07/06/18 18:00 Temperature Pulse Rate 78 78 82 Respiratory Rate 17 17 17 Blood Pressure 123/93 H 132/92 H 134/96 H Pulse Oximetry 95 94 L 97 07/06/18 18:30 07/06/18 19:00 07/06/18 19:30 Temperature Pulse Rate 89 80 74 Respiratory Rate 15 17 19 Blood Pressure 134/97 H 124/86 122/85 Pulse Oximetry 97 07/06/18 20:00 07/06/18 20:01 07/06/18 20:30 Temperature 98.3 F Pulse Rate 78 80 80 Respiratory Rate 18 16 17 Blood Pressure 142/99 H 140/103 H Pulse Oximetry 88 L 91 L 98 07/06/18 21:00 07/06/18 21:30 07/06/18 22:00 Temperature Pulse Rate 79 85 81 Respiratory Rate 17 18 18 Blood Pressure 141/94 H 148/100 H 129/85 Pulse Oximetry 100 98 100 07/06/18 22:30 07/06/18 23:00 07/06/18 23:30 Temperature Pulse Rate 83 81 85 Respiratory Rate 16 17 17 Blood Pressure 131/89 127/85 129/86 Pulse Oximetry 98 99 100 07/07/18 00:00 07/07/18 00:30 07/07/18 01:00 Temperature Pulse Rate 96 H 86 89 Respiratory Rate 19 17 12 Blood Pressure 132/84 136/90 Pulse Oximetry 97 100 87 L 07/07/18 01:11 07/07/18 01:30 07/07/18 02:00 Temperature Pulse Rate 82 81 90 Respiratory Rate 16 16 15 Blood Pressure 132/86 130/88 Pulse Oximetry 95 94 L 99 07/07/18 02:01 07/07/18 02:30 07/07/18 03:00 Temperature Pulse Rate 91 H 84 110 H Respiratory Rate 18 17 18 Blood Pressure 142/82 H 141/90 H 138/97 H Pulse Oximetry 97 99 98 07/07/18 03:30 07/07/18 03:50 07/07/18 04:00 Temperature Pulse Rate 109 H 79 80 Respiratory Rate 22 16 16 Blood Pressure 152/109 H 133/89 121/88 Pulse Oximetry 07/07/18 04:30 07/07/18 05:00 07/07/18 05:11 Temperature Pulse Rate 81 83 86 Respiratory Rate 17 18 17 Blood Pressure 135/90 126/86 Pulse Oximetry Intake & Output 07/06/18 07/07/18 07/07/18 18:59 06:59 18:59 Intake Total 2091.20 / 2091.20 1340 / 1340 1511.2 / 1511.2 Output Total 800 / 800 800 / 800 Balance 1291.20 / 1291.20 540 / 540 1511.2 / 1511.2 Weight 71.3 kg Intake: IV 1611.20 / 1611.20 1100 / 1100 1511.2 / 1511.2 D5W/LR Inj 1,000 ML @ 125 mls/ 1000 / 1000 1000 / 1000 1000 / 1000 hr IV.CONT .Q8H [facility] Rx#: [id number] MVI-12 Inj 10 ML Thiamine Inj 511.20 / 511.20 511.2 / 511.2 100 MG Folvite Inj 1 MG In NS Inj 500 ML @ 127.8 mls/hr IV. SIG Q24H [facility] Rx#:[id number] KCl 20 mEq Premix Inj 20 meq In 100 / 100 100 ml @ 50 mls/hr IV.SIG Q2H [facility] Rx#:[id number] Oral 480 / 480 240 / 240 Output: Urine 800 / 800 800 / 800 Other: # Voids 2 Date of Last Bowel Movement 07/06/18 07/07/18 # Bowel Movements 1 3 Narrative: GENERAL: This is a well-nourished, well-developed patient, in no apparent distress in restraints lying in bed.. CARDIOVASCULAR: Regular rate and rhythm RESPIRATORY: Clear to auscultation. Breath sounds equal bilaterally. No wheezes , rales, or rhonchi. GASTROINTESTINAL: Abdomen soft, non-tender, nondistended. Normal active bowel sounds MUSCULOSKELETAL: Extremities without clubbing, cyanosis, or edema. NEURO: Oriented to person but not to place or situation. Oriented to time,. Moves all ext x4 - Urinary Catheter Management Straight Cath placed during this visit: no Results - Labs CBC & Chem 7: 07/05/18 06:07 07/06/18 22:19 Laboratory Results - last 24 hr 07/06/18 22:19 Potassium 3.8 D Microbiology 07/03/18 20:10 Blood - Peripheral Aerobic Blood Culture - Preliminary No growth in 4 days 07/03/18 20:10 Blood - Peripheral Anaerobic Blood Culture - Preliminary No growth in 4 days 07/03/18 20:00 Blood - Peripheral Aerobic Blood Culture - Preliminary No growth in 4 days 07/03/18 20:00 Blood - Peripheral Anaerobic Blood Culture - Preliminary No growth in 4 days Assessment and Plan - Assessment (1) Alcohol abuse with intoxication Code(s): F10.129 - Alcohol abuse with intoxication, unspecified Status: Acute (2) Marijuana abuse Code(s): F12.10 - Cannabis abuse, uncomplicated Status: Chronic (3) Borderline personality disorder Code(s): F60.3 - Borderline personality disorder Status: Chronic (4) Altered mental status Code(s): R41.82 - Altered mental status, unspecified Status: Acute (5) Acute kidney injury Code(s): N17.9 - Acute kidney failure, unspecified Status: Resolved (6) Bipolar disorder Code(s): F31.9 - Bipolar disorder, unspecified Status: Chronic - Plan Altered mental status likely due to Toxic and metabolic encephalopathy -CT head negative -Acute psychosis versus alcohol withdrawal -[facility] protocol -Being followed by psychiatry who recommended transition to inpatient psychiatric unit when medically stable for further treatment.. -Received Geodon yesterday. On Haldol as needed and Seroquel per psychiatry. -Titrate off Precedex, still remains on drip this morning and will wean off. Urine drug screen positive for benzodiazepine and canniboids Bipolar disorder -Lamictal on hold. Appreciate psychiatry consultation. Macrocytosis -B12 folate and multivitamin infusion Leukocytosis -Likely stress related as now resolved. Acute kidney injury -now resolved. -Likely due to dehydration -We will discontinue, patient tolerating p.o. IV fluid resuscitation DVT -Teds SCDs -Subcu Lovenox Discharge Planning: Transfer to inpatient psychiatry unit when medically stable. (4) Altered mental status Qualifiers: Altered mental status type: unspecified Qualified Code(s): R41.82 - Altered mental status, unspecified
[2018-07-07] MEDS ORDERED: Naloxone Inj 0.4 MG/ML Vial IV.PUSH PRN (15:20)
[2018-07-07 18:14] VITALS: O2SAT 95
[2018-07-08] MEDS: Multivitamin Inj 10 ML, Thiamine Inj 100 MG, Folic Acid Inj 1 MG in Sodium Chlor 0.9% I... IV.SIG SCH (02:02)
[2018-07-08] MEDS: Chlorhexidine Gluconate 2% 1 Pack (2 Cloths) TOPICAL SCH (04:30)
[2018-07-08] MEDS: Heparin - SQ 10,000 UNITS/ML Vial SQ SCH (05:17)
[2018-07-08 06:36] LABS: Anion Gap 9 meq/L (5-15); Blood Urea Nitrogen 3 mg/dL (7-18); Calcium 9.4 mg/dL (8.5-10.1); Carbon Dioxide 26.6 meq/L (21.0-32.0); Chloride 109 meq/L (98-107); Glomerular Filtration Rate Greater Than 89 mL/min (>89); Glucose,Random 89 mg/dL (74-106); Potassium 3.4 meq/L (3.5-5.1); Sodium 145 meq/L (136-145)
[2018-07-08] MEDS: Senna/Docusate Sodium 8.6/50 MG Tablet PO SCH (08:51)
[2018-07-08] MEDS: QUEtiapine 25 MG Tablet PO SCH (08:51)
--- NOTE | 2018-07-08 09:06 | P.PN ---
Subjective Interval history: Follow-up toxic encephalopathy July 08, 2018-patient seen and examined, alert and oriented x3. Overnight, patient again try to escape the room. Four-point restraints has to be placed. Vital stable this morning. Physical Exam Vital signs: Vital Signs 07/07/18 10:00 07/07/18 11:00 07/07/18 12:00 Temperature 98.5 F Pulse Rate 100 H 85 81 Respiratory Rate 16 16 17 Blood Pressure 124/79 132/87 129/88 Pulse Oximetry 96 96 98 07/07/18 13:00 07/07/18 14:00 07/07/18 15:00 Temperature Pulse Rate 83 88 81 Respiratory Rate 16 12 17 Blood Pressure 133/86 148/84 H 149/102 H Pulse Oximetry 93 L 95 95 07/07/18 15:06 07/07/18 16:00 07/07/18 17:00 Temperature 98.7 F Pulse Rate 80 83 86 Respiratory Rate 16 18 16 Blood Pressure 135/93 H 136/93 H 135/92 H Pulse Oximetry 96 95 07/07/18 18:00 07/07/18 19:00 07/07/18 20:00 Temperature Pulse Rate 98 H 85 95 H Respiratory Rate 25 H 21 17 Blood Pressure 149/98 H 143/93 H 147/83 H Pulse Oximetry 07/07/18 21:00 07/07/18 22:00 07/07/18 23:00 Temperature 98.8 F Pulse Rate 97 H 98 H 99 H Respiratory Rate 19 19 19 Blood Pressure 136/94 H 143/96 H 133/86 Pulse Oximetry 07/08/18 00:00 07/08/18 01:00 07/08/18 02:00 Temperature Pulse Rate 93 H 103 H 94 H Respiratory Rate 16 19 19 Blood Pressure 126/84 151/92 H 136/88 Pulse Oximetry 07/08/18 03:00 07/08/18 04:00 Temperature Pulse Rate 88 82 Respiratory Rate 18 18 Blood Pressure 144/97 H 135/91 H Pulse Oximetry Intake & Output 07/07/18 07/08/18 07/08/18 18:59 06:59 18:59 Intake Total 3111.2 / 3111.2 240 / 240 Output Total 1850 / 1850 1999 / 1999 Balance 1261.2 / 1261.2 -1760 / -1760 Weight 70.8 kg Intake: IV 2511.2 / 2511.2 D5W/LR Inj 1,000 ML @ 125 mls/ 1999 / 1999 hr IV.CONT .Q8H [facility] Rx#: [id number] MVI-12 Inj 10 ML Thiamine Inj 511.2 / 511.2 100 MG Folvite Inj 1 MG In NS Inj 500 ML @ 127.8 mls/hr IV. SIG Q24H [facility] Rx#:[id number] Oral 600 / 600 240 / 240 Output: Urine 1850 / 1850 1999 Other: # Voids 4 Date of Last Bowel Movement 07/07/18 07/07/18 # Bowel Movements 1 Narrative: GENERAL: This is a well-nourished, well-developed patient, in no apparent distress, four-point restraints in place CARDIOVASCULAR: Regular rate and rhythm RESPIRATORY: Clear to auscultation. Breath sounds equal bilaterally. No wheezes , rales, or rhonchi. GASTROINTESTINAL: Abdomen soft, non-tender, nondistended. Normal active bowel sounds MUSCULOSKELETAL: Extremities without clubbing, cyanosis, or edema. NEURO: Oriented to person but not to place or situation. Oriented to time,. Moves all ext x4 - Urinary Catheter Management Straight Cath placed during this visit: no Results - Labs CBC & Chem 7: 07/05/18 06:07 07/08/18 05:37 Laboratory Results - last 24 hr 07/08/18 05:37 Sodium 145 Potassium 3.4 L Chloride 109 H Carbon Dioxide 26.6 Anion Gap 9 BUN 3 L Creatinine 0.66 Estimated GFR Greater than 89 Random Glucose 89 Calcium 9.4 Microbiology 07/03/18 20:10 Blood - Peripheral Aerobic Blood Culture - Preliminary No growth in 4 days 07/03/18 20:10 Blood - Peripheral Anaerobic Blood Culture - Preliminary No growth in 4 days 07/03/18 20:00 Blood - Peripheral Aerobic Blood Culture - Preliminary No growth in 4 days 07/03/18 20:00 Blood - Peripheral Anaerobic Blood Culture - Preliminary No growth in 4 days - Procedures None Assessment and Plan - Assessment (1) Alcohol abuse with intoxication Code(s): F10.129 - Alcohol abuse with intoxication, unspecified Status: Acute (2) Marijuana abuse Code(s): F12.10 - Cannabis abuse, uncomplicated Status: Chronic (3) Borderline personality disorder Code(s): F60.3 - Borderline personality disorder Status: Chronic (4) Altered mental status Code(s): R41.82 - Altered mental status, unspecified Status: Acute (5) Acute kidney injury Code(s): N17.9 - Acute kidney failure, unspecified Status: Resolved (6) Bipolar disorder Code(s): F31.9 - Bipolar disorder, unspecified Status: Chronic - Plan 43-year-old female with Toxic and metabolic encephalopathy -CT head negative -Acute psychosis versus alcohol withdrawal -[facility] -Appreciate input from psychiatry, continue with Seroquel -Received Geodon . -s/p Precedex Urine drug screen positive for benzodiazepine and canniboids Patient is now medically stable for transfer to inpatient psych Bipolar disorder -Lamictal on hold. Appreciate psychiatry consultation. Macrocytosis -B12 folate and multivitamin infusion Leukocytosis -Likely stress related as now resolved. Acute kidney injury -now resolved. -s/p IVF hydration DVT -Teds SCDs -Subcu Lovenox Patient is now medically stable for transfer to inpatient psych (4) Altered mental status Qualifiers: Altered mental status type: unspecified Qualified Code(s): R41.82 - Altered mental status, unspecified
--- NOTE | 2018-07-08 09:08 | P.DS ---
Date of admission: 07/03/18 19:11 Primary care physician: UNKNOWN Brief History from admission: This is a 43-year-old CF with PMHx of Bipolar disorder and Alcohol abuse admitted for evaluation of altered mental status after she was acting weird in the bathtub. According to the ER reports patient was rolling from side to side and banging her head uncontrollably. She was awake and continued to say "no" and would not say anything else. This was witnessed by her , who also reported that she was flailing her arms and legs, with a possible seizure. Per patient's patient drinks alcohol daily, however her alcohol level was negative on admission. He was unsure if she had consumed any alcohol on the day of admission. +marijuana use. Denies any other illicit drug use per . Of note, on Wednesday patient was started on Lamotrigine for bipolar disorder, it is unknown who Rx this. History is taken today from RN at bedside, previous notes, and ER records. is not present currently during my evaluation. On my evaluation today, patient is completely sedated after being started on a Precedex drip due to increased aggression this morning. DS: Diagnosis - Discharge Diagnosis (1) Alcohol abuse with intoxication Status: Acute (2) Marijuana abuse Status: Chronic (3) Borderline personality disorder Status: Chronic (4) Altered mental status Status: Acute (5) Acute kidney injury Status: Resolved (6) Bipolar disorder Status: Chronic DS: Summary Hospital Course: While in hospital, patient was treated for: Toxic and metabolic encephalopathy -CT head negative -Acute psychosis versus alcohol withdrawal -[facility] protocol -Appreciate input from psychiatry, continue with Seroquel -[facility] . -She was treated with Precedex, which was discontinued on July 06, 2018 Urine drug screen positive for benzodiazepine and canniboids Bipolar disorder -Lamictal on hold. Appreciate psychiatry consultation. Macrocytosis -B12 folate and multivitamin infusion Leukocytosis -Likely stress related as now resolved. Acute kidney injury -now resolved. -s/p IVF hydration DVT -Teds SCDs -Subcu Lovenox - Time Spent with Patient Total time spent providing and/or coordinating discharge services: Greater than 30 minutes - Quality: VTE Deep Vein Thrombosis/Pulmonary Embolism Present on Admission: No Exam Vital signs: Vital Signs 07/07/18 10:00 07/07/18 11:00 07/07/18 12:00 Temperature 98.5 F Pulse Rate 100 H 85 81 Respiratory Rate 16 16 17 Blood Pressure 124/79 132/87 129/88 Pulse Oximetry 96 96 98 07/07/18 13:00 07/07/18 14:00 07/07/18 15:00 Temperature Pulse Rate 83 88 81 Respiratory Rate 16 12 17 Blood Pressure 133/86 148/84 H 149/102 H Pulse Oximetry 93 L 95 95 07/07/18 15:06 07/07/18 16:00 07/07/18 17:00 Temperature 98.7 F Pulse Rate 80 83 86 Respiratory Rate 16 18 16 Blood Pressure 135/93 H 136/93 H 135/92 H Pulse Oximetry 96 95 07/07/18 18:00 07/07/18 19:00 07/07/18 20:00 Temperature Pulse Rate 98 H 85 95 H Respiratory Rate 25 H 21 17 Blood Pressure 149/98 H 143/93 H 147/83 H Pulse Oximetry 07/07/18 21:00 07/07/18 22:00 07/07/18 23:00 Temperature 98.8 F Pulse Rate 97 H 98 H 99 H Respiratory Rate 19 19 19 Blood Pressure 136/94 H 143/96 H 133/86 Pulse Oximetry 07/08/18 00:00 07/08/18 01:00 07/08/18 02:00 Temperature Pulse Rate 93 H 103 H 94 H Respiratory Rate 16 19 19 Blood Pressure 126/84 151/92 H 136/88 Pulse Oximetry 07/08/18 03:00 07/08/18 04:00 Temperature Pulse Rate 88 82 Respiratory Rate 18 18 Blood Pressure 144/97 H 135/91 H Pulse Oximetry Intake & Output 07/07/18 07/08/18 07/08/18 18:59 06:59 18:59 Intake Total 3111.2 / 3111.2 240 / 240 Output Total 1850 / 1850 1999 Balance 1261.2 / 1261.2 -1760 / -1760 Weight 70.8 kg Intake: IV 2511.2 / 2511.2 D5W/LR Inj 1,000 ML @ 125 mls/ 1999 / 1999 hr IV.CONT .Q8H [facility] Rx#: [id number] MVI-12 Inj 10 ML Thiamine Inj 511.2 / 511.2 100 MG Folvite Inj 1 MG In NS Inj 500 ML @ 127.8 mls/hr IV. SIG Q24H [facility] Rx#:[id number] Oral 600 / 600 240 / 240 Output: Urine 1850 / 1850 1999 / 1999 Other: # Voids 4 Date of Last Bowel Movement 07/07/18 07/07/18 # Bowel Movements 1 Narrative: GENERAL: This is a well-nourished, well-developed patient, in no apparent distress, four-point restraints in place CARDIOVASCULAR: Regular rate and rhythm RESPIRATORY: Clear to auscultation. Breath sounds equal bilaterally. No wheezes , rales, or rhonchi. GASTROINTESTINAL: Abdomen soft, non-tender, nondistended. Normal active bowel sounds MUSCULOSKELETAL: Extremities without clubbing, cyanosis, or edema. NEURO: Oriented to person but not to place or situation. Oriented to time,. Moves all ext x4 Results Procedures completed during hospitalization: None Labs on day of discharge: Labs from last 24 hours 07/08/18 05:37 Sodium 145 Potassium 3.4 L Chloride 109 H Carbon Dioxide 26.6 Anion Gap 9 BUN 3 L Creatinine 0.66 Estimated GFR Greater than 89 Random Glucose 89 Calcium 9.4 Preliminary micro results at discharge 07/03/18 20:10 Aerobic Blood Culture - Preliminary Blood - Peripheral No growth in 4 days Anaerobic Blood Culture - Preliminary No growth in 4 days 07/03/18 20:00 Aerobic Blood Culture - Preliminary Blood - Peripheral No growth in 4 days Anaerobic Blood Culture - Preliminary No growth in 4 days - Impressions ITS Impressions Cervical Spine CT 07/03/18 16:55 CONCLUSION: 1. No acute findings on cervical spine CT. Head CT 07/03/18 16:55 CONCLUSION: 1. No acute intracranial abnormality. 2. Mild bilateral maxillary sinus mucosal disease. . Chest X-Ray 07/03/18 18:22 CONCLUSION: 1. No acute cardiopulmonary disease. Discharge Plan - Discharge Disposition Patient Disposition: 65 [facility] To [facility] - Discharge Condition Condition: Good - Discharge Order Discharge Orders: Discharge Order (Routine); Ordered 07/08/18 Ordered By: Naun Sanchez - Physicians Team Primary Care Provider: UNKNOWN, Attending Provider: Naun Sanchez Other Providers: Rajinder Crawley MD ; Jose Hawthorne MD
[2018-07-08 09:54] VITALS: BP 149/100; PULSE 130; RESP 21; TEMP 98.1
== END 2018-07-08 12:05 ==
LOC: NEDA 16:43 → NEPD 16:43 → HIMC 20:20
PROVIDERS: ADMIT Hospitalist; ATTEND Hospitalist

== ENCOUNTER 2018-07-08 12:16 | Inpatient (IN) ==
[2018-07-08] MEDS ORDERED: Acetaminophen 325 MG Tablet PO PRN (13:14)
[2018-07-08] MEDS ORDERED: Aluminum/Magnesium/Simethacone Susp 30 ML UDC PO PRN (13:15)
[2018-07-08] MEDS ORDERED: LORazepam 1 MG Tablet PO PRN (13:15)
[2018-07-08] MEDS ORDERED: Haloperidol Inj 5 MG/ML Ampul IV.PUSH PRN (13:15)
[2018-07-08] MEDS ORDERED: Bisacodyl 10 MG Supp RECTAL PRN (13:15)
[2018-07-08] MEDS: QUEtiapine 25 MG Tablet PO SCH ×2 (14:56→21:00)
[2018-07-08] MEDS: Senna/Docusate Sodium 8.6/50 MG Tablet PO SCH (21:00)
[2018-07-09] MEDS: Senna/Docusate Sodium 8.6/50 MG Tablet PO SCH ×2 (09:00→20:28)
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
[2018-07-09] MEDS: QUEtiapine 25 MG Tablet PO SCH (20:28)
[2018-07-10] MEDS: QUEtiapine 25 MG Tablet PO SCH ×2 (08:14→20:17)
[2018-07-10] MEDS: Senna/Docusate Sodium 8.6/50 MG Tablet PO SCH ×3 (08:15→20:17)
--- NOTE | 2018-07-10 10:44 | P.PNPSY ---
Subjective Chief Complaint: acute psychosis Remarks: Chart reviewed and discussed with nursing staff. Patient in common area. She denies any suicidal or homicidal thoughts. She states that she struggles with her bipolar and that she was placed on Lamictal for mood stabilization which resulted in a rash and she had to stop the medication. She states she has lost 80 pounds for the course of a year and is worried about taking Seroquel. She is requesting a nicotine patch and something for sleep. Will start her on Trazodone 50 mg and nicotine patch. She is also asking for ointment to be applied to the open areas around her ankles and wrists from the restraints. I advised patient to speak to her psychiatrist tomorrow regarding the Seroquel. Review of Systems All other systems reviewed negative except as stated in HPI Mental Status Examination Appearance: Appropriate Consciousness: Alert Orientation: x4 Motor Activity: Normal gait Speech: Unremarkable Language: Adequate Fund of Knowledge: Adequate Attention and Concentration: Adequate Memory: Unremarkable Mood: Appropriate Affect: Appropriate Thought Process & Associations: Intact Thought Content: Appropriate Hallucination Type: None Delusion Type: None Suicidal Ideation: No Suicidal Plan: No Suicidal Intention: No Homicidal Ideation: No Homicidal Plan: No Homicidal Intention: No Insight: Adequate Judgment: Adequate Assessment and Plan - Assessment (1) Borderline personality disorder Code(s): F60.3 - Borderline personality disorder Status: Chronic (2) Bipolar disorder Code(s): F31.9 - Bipolar disorder, unspecified Status: Chronic - Plan Plan: Estimated LOS: [] days Continue current treatment plan. Patient will talk to psychiatrist tomorrow regarding her concerns about weight gain with Seroquel. Justification for Continued Inpatient Stay: Moving patient to a less restrictive environment may result in her decompensation.
[2018-07-10 14:30] LABS: Calcium 9.3 mg/dL (8.5-10.1); Carbon Dioxide 28.5 meq/L (21.0-32.0); Potassium 3.3 meq/L (3.5-5.1)
[2018-07-10 14:32] LABS: Chol/HDL Ratio 4.36 Ratio; HDL Cholesterol 36.2 mg/dL (40.0-60.0)
[2018-07-10 14:33] LABS: Hemoglobin A1c 4.9 % (4.3-6.0)
[2018-07-10 15:54] VITALS: TEMP 98.7
[2018-07-10] MEDS ORDERED: traZODone 50 MG Tablet PO SCH (21:00)
[2018-07-11 05:23] VITALS: RESP 16
[2018-07-11 06:07] VITALS: BP 159/86; PULSE 82; O2SAT 96
[2018-07-11] MEDS: QUEtiapine 25 MG Tablet PO SCH (08:25)
[2018-07-11] MEDS: Senna/Docusate Sodium 8.6/50 MG Tablet PO SCH (08:30)
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
== END 2018-07-11 13:55 | disposition home or self-care (01) ==
LOC: H270 12:26
PROVIDERS: ADMIT Psychiatry & Neurology Psychiatry; ATTEND Psychiatry & Neurology Psychiatry